=== PATIENT | female | born 1970 | race Two or more races ===

== ENCOUNTER 2023-05-30 15:53 | Outpatient (REF) | payer MEDICAID, SELFPAY ==
[2023-05-30 17:43] LABS: MANUAL DIFF FLAG NO
[2023-05-30 18:05] LABS: Anion Gap 13 (12-20); Blood Urea Nitrogen 7 mg/dL (9-16); Carbon Dioxide 27 mmol/L (22-29); Chloride 107 mmol/L (96-108); Estimated Glomerular Filt Rate > 60; Glucose Random 87 mg/dL (60-115); Potassium 4.5 mmol/L (3.3-5.1); Sodium 142 mmol/L (135-145)
[2023-05-30 18:22] LABS: TSH reflex Free T4 1.31 uIU/mL (0.32-4.0); Vitamin D 25-OH Total 49.8 ng/mL (>30)
[2023-05-30 18:28] LABS: Basophils Percent Auto 0.4 % (0-2); Eosinophils Absolute Auto 0.3 X10*3/uL (0.0-0.4); Eosinophils Percent Auto 3.6 % (0-4); Hematocrit 40.8 % (37.0-47.0); Hemoglobin 14.8 g/dl (12.0-16.0); Imm Gran Abs Auto 0.03 X10*3/uL (0.00-0.03); Imm Gran Pct Auto 0.3 % (0.0-0.4); Lymphocytes Absolute Auto 2.7 X10*3/uL (1.2-4.9); Mean Corpuscular HGB Conc 36.3 g/dl (31.0-35.0); Mean Corpuscular Hemoglobin 30.3 pg (27.0-33.0); Mean Corpuscular Volume 83.6 fL (80.0-98.0); Mean Platelet Volume 11.6 fL (9.4-12.3); Monocytes Absolute Auto 0.5 X10*3/uL (0.1-1.2); Monocytes Percent Auto 5.4 % (2-11); Neutrophils Absolute Auto 5.4 x10*3/uL (2.0-8.3); Neutrophils Percent Auto 60.3 % (45-73); Platelet Count 347 X10*3/uL (160-400); Red Blood Count 4.88 X10*6/uL (4.20-5.50); Red Cell Distribution Width 13.8 % (11.0-16.0)
== END 2023-05-30 15:54 | disposition home or self-care (01) ==
LOC: HO.HHCL 15:53
PROVIDERS: Visit Provider Internal Medicine
DX: F41.9 Anxiety disorder, unspecified (principal); R00.2 Palpitations; R53.83 Other fatigue
CPT/HCPCS: 36415; 80048; 82306; 83735; 84443; 85025

== ENCOUNTER → 2023-07-01 10:58 | Outpatient (REF) | payer MEDICAID, SELFPAY ==
--- NOTE | 2023-07-01 | HM_ITS ---
* Total monitoring time 2 days. * Underlying rhythm is sinus with an average rate of 70/Min. Range 50 to 154/Min. * Rare ventricular ectopy. * No significant pauses or AV blocks. * No patient markers or diary events. MTDD
--- NOTE | 2023-07-01 11:01 | CA_ITS ---
Transthoracic Echocardiogram Patient (Last, First, Middle): Sara Lyle, Gender: Female Date of : 1970 Age: 52 Procedure Date: 07/01/2023 Procedure Type: Transthoracic Echocardiogram Location: OP Height: 162. cm Weight: 65.77 kg BSA: 1.70 m2 Heart Rate: bpm BP: 115 / 80 mmHg Corporate Representative: ANUP Referring MD: Kevin Trejo MD Symptoms: PALPITATIONS Study Quality: Adequate Conclusions: - Normal left ventricular size and systolic function. There is mildly increased left ventricular wall thickness. The visually estimated ejection fraction is between 65-70%. There is no evidence of regional wall motion abnormalities. Diastolic function is normal for age. - Normal right ventricular cavity size and systolic function. Findings Left Ventricle Normal left ventricular size and systolic function. There is mildly increased left ventricular wall thickness. The visually estimated ejection fraction is between 65-70%. There is no evidence of regional wall motion abnormalities. Diastolic function is normal for age. Right Ventricle Normal right ventricular cavity size and systolic function. Atria The left atrium is normal in size. The right atrium is normal in size. Aortic Valve The aortic valve was not well visualized. There is no aortic valve stenosis. There is no aortic valve regurgitation. Mitral Valve Normal mitral valve structure and function. There is no mitral valve regurgitation. There is no mitral valve stenosis. Pulmonic Valve The pulmonic valve is likely normal. Tricuspid Valve Normal tricuspid valve structure. There is trace tricuspid valve regurgitation. Normal right atrial pressure. There is no evidence of pulmonary hypertension. Great Vessels All visible segments of the aorta are normal in size. Venous The inferior vena cava is normal in size and collapses greater than 50% with inspiration. Pericardium/Pleural There is no evidence of pericardial effusion. Prior Study Comparison No prior study available for comparison. Measurements 2D Linear Measurements IVSd: 1.20 0.6-0.9/0.6-1.0 cm LVIDd: 3.36 3.9-5.3/4.2-5.9 cm LVIDd Index: 1.98 2.4-3.2/2.2-3.1 cm/m2 LVIDs: 1.70 2.0-3.6 cm LVPWd: 1.21 0.7-1.1 cm LA Diam: 2.20 2.7-3.8/3.0-4.0 cm LAIDs Index: 1.29 1.5-2.3 cm/m2 LV Mass: 160.33 67-162/88-224 g LV Mass Index: 94.31 43-95/49-115 g/m2 LVOT Diam: 1.80 3.0+(-)1.3 cm 2D Systolic Function EF 4C: 59.50 >55% EF 2C: 65.50 >55% EF BiP: 62.20 >55% Mitral Valve MV Pk E: 0.67 MV PK A: 0.75 MV Decel Time: 173.00 E/A: 0.90 E'Lateral: 12.00 E'Medial: 6.64 E/E' Med: 10.10 E/E' Lat: 5.60 PHT: 51.00 MVA PHT: 4.31 Decel Charlotte: 3.87 Aortic Valve AoV Pk Adam: 1.88 AoV Mn Adam: 1.33 AoV VTI: 0.38 AoV Pk Grad: 14.00 Aov Mn Grad: 8.00 FRANK Cont.VTI: 1.74 LVOT LVOT Pk Adam: 1.55 LVOT Mn Adam: 0.94 LVOT VTI: 0.26 LVOT Pk Grad: 10.00 LVOT Mn Grad: 4.00 LVOT Diam: 1.80 LVOT Area: 2.54 Diastolic Function MV Pk E: 0.67 MV Pk A: 0.75 E/A: 0.90 E'Medial: 6.64 E/E' Med: 10.10 E' Laterial: 12.00 E/E' Lat: 5.60 Right Ventricle TAPSE (mm): 21.50 TVS' Adam: 10.80 Tricuspid Valve TR Pk Adam: 2.05 TR Pk Grad: 17.00 RA Press: 3.00 RVSP: 20.00 Great Vessels Aorta Sinus of Valsalva: 2.90 2.0-3.5 cm Ao Asc: 2.80 2.1-3.4 cm Pulmonary Valve PV Pk Adam: 1.21 Peak PV Grad: 6.00 Updated in Other Vendor System with Status of Final Ace Fraire MD electronically signed on 07/02/2023 10:54:58 PM with status of Final
== END ==
LOC: HO.CARD 10:58
PROVIDERS: PCP Internal Medicine; Visit Provider Internal Medicine
DX: R00.2 Palpitations (principal)
CPT/HCPCS: 93225; 93306

== ENCOUNTER → 2023-07-01 11:01 | Outpatient (BNV) | payer MEDICAID, SELFPAY | PROVIDERS: PCP Internal Medicine; Visit Provider Internal Medicine Cardiovascular Disease | DX: R00.1 Bradycardia, unspecified (principal) | CPT/HCPCS: 93227; 93306 ==

== ENCOUNTER 2024-02-28 14:53 | Outpatient (AMB) | payer MEDICAID, SELFPAY ==
--- NOTE | 2024-02-28 14:53 | MHC.OFFVIS ---
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 Complaints include pain over lumps/lipoedema, swelling of lower extremities, and heaviness of the lower extremities. It has been affecting their daily activities including walking, standing, and physical activity. It is noted more so in bilateral legs. She states it has been going on since puberty but getting worse. She has been ruled out for DVT/PE in the past. She states that she finds the lumps/swelling/pain is worse when she has her menstrual cycle. Patient denies any previous venous surgery or injections. Patient denies any history of DVT/ PE. Patient denies any history of phlebitis. Trial of compression includes - exercise, eating well; compression stockings help They now present for vascular evaluation regarding their varicose veins. [facility] Social History (Updated 02/28/24 @ 15:06 by Fatoumata Sue CMA) Alcohol intake: current Alcohol intake frequency: holidays/special occasions only Patient Tobacco Use Status: Former Tobacco user Review of Systems Const Denies chills, Denies daytime sleepiness, Denies fatigue, Denies fever(s), Denies poor appetite, Denies snoring, Denies stops breathing during sleep, Denies weakness, Denies weight gain and Denies weight loss Eyes Denies loss of vision ENT Reports Normal hearing present, Denies dizziness and Denies hearing loss Card Denies chest pain, Denies irregular heart rhythm, Denies claudication, Denies leg edema, Denies lightheadedness, Denies palpitations, Denies dyspnea on exertion and Denies orthopnea Resp Denies cough, Denies excessive phlegm production, Denies dyspnea on exertion, Denies snoring and Denies wheezing GI Denies abdominal pain, Denies hematochezia, Denies change in bowel habits, Denies nausea and Denies vomiting Denies urinary frequency and Denies dysuria Musc Denies arthralgias, Denies muscle weakness, Denies numbness and Denies other Skin/Breast Denies nail changes and Denies rash Neuro Reports Normal hearing present, Denies Abnormal speech present, Denies dizziness, Denies loss of vision, Denies memory loss, Denies numbness, Denies Sensory deficit (Neuro) and Denies weakness Psych Denies depression and Denies memory loss Endo Denies fatigue and Denies palpitations Graham/Lymph Denies easy bruising Aller/Immun Denies wheezing Physical Exam Const General: healthy appearing and no acute distress Orientation/consciousness: patient oriented x3 HEENT Head: Yes normal to inspection Ears: hearing grossly normal bilaterally Mouth: Normal oral and palatal mucosa present Resp Effort & Inspection: normal respiratory effort and able to speak in complete sentences Auscultation: clear to auscultation bilaterally Cardio Jugular venous distension: no JVD Rate: regular rate Rhythm: regular rhythm Heart sounds: S1 normal heart sound present and S2 normal heart sound present Bruits: no abdominal aortic bruits, no carotid bruits, no femoral bruits and no renal bruits Peripheral pulses: Peripheral pulses 2+ throughout GI Inspection: Yes normal to inspection Palpation (GI): No Abdominal aortic bruit present Skin General skin exam: no rashes or lesions noted Wounds: no wounds Hair: normal Neuro General: patient oriented x3 Cranial nerves: Yes Normal hearing present Cognition (Neuro): normal cognition Speech: No Abnormal speech present Gait exam (Neuro): Normal gait present Motor exam (neuro): 5/5 motor strength present throughout Sensory Exam: No Sensory deficit (Neuro) Extrem Other: Bilateral lower extremities: trace peripheral edema noted. Bumpy areas noted on both side of the tibia and around the calf. General: Yes normal to inspection, Yes full ROM, Yes capillary refill normal and Yes normal gait Assessment & Plan Assessment & Plan (1) Varicose veins of both lower extremities with inflammation: Code(s): I83.11 - Varicose veins of right lower extremity with inflammation; I83.12 - Varicose veins of left lower extremity with inflammation Category: Medical Plan: Sara is presenting today for a referral from his PCP for ongoing bilateral leg swelling, pain, and lumps/bumps, that are getting worse. In short, the patient has evidence of venous insufficiency. I have discussed the pathophysiology with the patient. In addition I have provided informational material regarding venous disease to the patient. We have discussed conservative measures including compression, elevation, and exercise. I have also provided a handout regarding appropriate use of compression stockings and where to purchase good compression stockings as well. I have taken the liberty of ordering venous insufficiency testing with the patient. They will follow up with me after testing. The patient had an opportunity to ask questions regarding the treatment plan. All questions were answered. Imaging studies, laboratory studies and physical exam results were discussed and reviewed in detail. No major barriers to understanding were identified. The patient expressed understanding and agreement with the above treatment plan. The patient is aware they should contact our office by phone for worsening of the current condition or the appearance of new symptoms. Thank you for allowing me to participate in the vascular care of this patient. If you have any questions or concerns regarding the treatment for the above condition please do not hesitate to contact me. The office telephone contact is [phone]. This note is constructed using voice recognition software. While every effort has been made to ensure accuracy, clinical medical assistant errors may have been included. Thank you for allowing me to participate in the care of your patient. Yours sincerely, TAYO Page Orders: Orders US venous duplex LE BI 1 Week I83.11 - Varicose veins of right lower extremity with inflammation, I83.12 - Varicose veins of left lower extremity with inflammation Coding Level of Care Code New Pt Level 4 (62731) Diagnoses Varicose veins of both lower extremities with inflammation I83.11; I83.12
== END 2024-02-28 15:26 | disposition home or self-care (01) ==
PROVIDERS: PCP General Practice; Visit Provider Physician Assistant Surgical
DX: I83.11 Varicose veins of right lower extremity with inflammation (principal); I83.12 Varicose veins of left lower extremity with inflammation
CPT/HCPCS: 99204

== ENCOUNTER → 2024-02-28 14:53 | Outpatient (BNVA) | payer MEDICAID, SELFPAY | PROVIDERS: PCP General Practice; Visit Provider Physician Assistant Surgical | DX: I83.11 Varicose veins of right lower extremity with inflammation (principal); I83.12 Varicose veins of left lower extremity with inflammation | CPT/HCPCS: 99212 ==

== ENCOUNTER 2024-04-13 10:35 | Outpatient (REF) | payer MEDICAID, SELFPAY ==
--- NOTE | ~2024-04-13 | US_ITS ---
EXAMINATION: US LOWER EXTREMITY VENOUS (REFLUX EXAM), BILATERAL CLINICAL INFORMATION: Varices with inflammation, right lower extremity. COMPARISON: None. TECHNIQUE: Color flow triplex imaging and compression Doppler was performed to evaluate both the deep and the superficial systems bilaterally. To evaluate the superficial system, the examination was performed in the upright position. Color-flow Doppler ultrasound and compression ultrasound were utilized. In addition, maneuvers were utilized to demonstrate reflux. FINDINGS: 1. DEEP VENOUS ULTRASOUND OF THE RIGHT LOWER EXTREMITY: Common Femoral Vein: Compressible, normal respiratory variation and augmented flow. Femoral Vein: Compressible, normal color flow and augmentation. Popliteal Vein: Compressible, normal augmentation. Deep Reflux: There is no evidence of reflux in the deep system in either the common femoral vein, superficial femoral or the popliteal vein. There is no evidence of a Diane's cyst. 2. SUPERFICIAL ULTRASOUND WITH DOPPLER OF RIGHT LOWER EXTREMITY: GREAT SAPHENOUS VEIN: Saphenofemoral Junction: 0.6 cm; Reflux: 0 ms Proximal Thigh: 0.2 cm; Reflux: 0 ms Mid Thigh: 0.3 cm; Reflux: 0 ms Distal Thigh: 0.2 cm; Reflux: 0 ms At Knee: 0.3 cm; Reflux: 0 ms Proximal Calf: 0.1 cm; Reflux: 0 ms Mid Calf: 0.1 cm; Reflux: 0 ms Distal Calf: 0.1 cm; Reflux: 0 ms DUPLICATED MEDIAL GREAT SAPHENOUS VEIN: Diameter: None imaged Reflux: NA DUPLICATED LATERAL GREAT SAPHENOUS VEIN: Diameter: 0.3 Reflux: NA SMALL SAPHENOUS VEIN: Saphenopopliteal Junction: 0.2 cm; Reflux: 0 ms Proximal: 0.1 cm; Reflux: 0 ms Distal: 0.1 cm; Reflux: 0 ms VEIN OF GIACOMINI: Size: 0.1 Reflux: NA PERFORATORS: Location: None imaged Size: NA Reflux: NA VARICOSITIES: Location: None imaged. Size: NA Reflux: NA 3. DEEP VENOUS ULTRASOUND OF THE LEFT LOWER EXTREMITY: Common Femoral Vein: Compressible, normal respiratory variation and augmented flow. Femoral Vein: Compressible, normal color flow and augmentation. Popliteal Vein: Compressible, normal augmentation. Deep Reflux: There is no evidence of reflux in the deep system in either the common femoral vein, superficial femoral or the popliteal vein. There is no evidence of a Diane's cyst. 4. SUPERFICIAL ULTRASOUND WITH DOPPLER OF LEFT LOWER EXTREMITY: GREAT SAPHENOUS VEIN: Saphenofemoral Junction: 0.7 cm; Reflux: 0 ms Proximal Thigh: 0.3 cm; Reflux: 0 ms Mid Thigh: 0.2 cm; Reflux: 0 ms Distal Thigh: 0.2 cm; Reflux: 0 ms At Knee: 0.2 cm; Reflux: 0 ms Proximal Calf: 0.1 cm; Reflux: 0 ms Mid Calf: 0.1 cm; Reflux: 0 ms Distal Calf: 0.1 cm; Reflux: 0 ms DUPLICATED MEDIAL GREAT SAPHENOUS VEIN: Diameter: None imaged Reflux: NA DUPLICATED LATERAL GREAT SAPHENOUS VEIN: Diameter: 0.2 Reflux: NA SMALL SAPHENOUS VEIN: Saphenopopliteal Junction: 0.2 cm; Reflux: 0 ms Proximal: 0.2 cm; Reflux: 0 ms Distal: 0.1 cm; Reflux: 0 ms VEIN OF GIACOMINI: Size: 0.2 Reflux: NA PERFORATORS: Location: None imaged Size: NA Reflux: NA VARICOSITIES: Location: None Imaged Size: NA Reflux: NA US/US venous insuf bilat IMPRESSION: Right: No venous insufficiency. Left: No venous insufficiency. Electronically signed by: Jean Carlos Wiggins MD 04/16/2024 08:20 AM [facility]
--- OUTSIDE RECORDS SUMMARY | 2024-04-13 12:01 | XMS_ITS | Encounter Summary ---
Author Organization [employer] Address [address] [facility] [address] [address] 7[address] [place] [address] Care Team Providers Care Internet Programmer Name Role Phone Kadi Carvajal MD Primary Care Provider [phone] Reason for Visit * Reason Onset Date Comments Med Refill 08/20/2023 Encounter Details Date Type Department Care Team (Late st Contact Info) Description 08/20/2023 Refill [facility] [address] [place] [address] Selam Pickard MD [address] [place] [address] Mild persistent asthma without complication Social History Tobacco Use Types Packs/Day Years Used Date Smoking Tobacco: Some Days Cigarettes Smokeless Tobacco: Never Alcohol Use Standard Drinks/Week Comments Yes 0 (1 standard drink = 0.6 oz pur e alcohol) Beer and Wine Depression Answer Date Recorded Patient Health Questionnaire-9 Score 23 06/03/2023 Patient Health Questionnaire-9 Score 23 06/03/2023 Last PHQ-9: Questionnaire Data Not on file 0 06/03/2023 Housing Stability Answer Date Recorded What is your housing situation today? I have sarah mcrae 06/03/[address] you li ve. Do you have problems with any of the following? None of the above 06/03/2023 Food Insecurity Answer Date Recorded Within the past 12 months, y ou worried that your food would run out before you got money to buy more: Never True 06/03/2023 Within the past 12 months,th e food you bought just didn't last and you didn't have enough money to get more: Never True Transportation Answer Date Recorded In the past 12 months, has l ack of transportation kept you from medical appts, meetings, work or from getting things needed for daily living? Yes, it has kept me from medical appointments or getting medications. 06/03/2023 Utilities Answer Date Recorded In the past 12 months, has t he electric, gas, oil or water company threatened to shut off services in your home? No 06/03/2023 Depression Answer Date Recorded Patient Health Questionnaire-2 Score 6 06/03/2023 Comments No Sex and Gender Information Value Date Recorded Sex Assigned at Female 05/25/2022 12:29 PM EST Legal Sex Female 8:38 PM EDT Gender Identity Female 05/25/2022 12:29 PM EST Sexual Orientation Lesbian or Park 06/03/2023 11 :42 AM EDT Occupation Industry Job Start Date Job End Date [employer] Not on file Not on file Not on file documented as of this encounter Plan of Treatment Upcoming Encounters Date Type Department Care Team (Late st Contact Info) Description 04/25/2024 3:00 PM EST Office Visit [facility] MEDICINE [address] [place] [address] Kadi Carvajal MD [address] [place] [address] 05/03/2024 1:30 PM EST Clinical Support [address] [address] Leslie Stapleton, RN documented as of this encounter Visit Diagnoses Diagnosis Mild persistent asthma without complication documented in this encounter Additional Health Concerns Assessment Noted Time PHQ-9 Depression Total Score: 23 024 9:07 AM EDT documented as of this encounter Care Teams Internet Programmer Relationship Specialty Start Date End Date Kadi Carvajal MD [address] [place] [address] PCP - General Family Medicine 06/03/23 documented as of this encounter
--- OUTSIDE RECORDS SUMMARY | 2024-04-13 12:01 | XMS_ITS | Encounter Summary ---
Author Organization [employer] Address [address] 7[address] [place] [address] Care Team Providers Care Head Of Marketing Analytics Name Role Phone Kadi Carvajal MD Primary Care Provider [phone] Encounter Details Date Type Department Care Team ([facility] st Contact Info) Description 08/16/[address] 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 MEDICINE [address] [place] [address] Kadi Carvajal MD [address] [place] [address] 05/03/2024 1:30 PM EST Clinical Support [address] [address] Leslie Stapleton, RN documented as of this encounter Visit Diagnoses Not on filedocumented in this encounter Additional Health Concerns Assessment Noted Time PHQ-9 Depression Total Score: 23 024 9:07 AM EDT documented as of this encounter Care Teams Head Of Marketing Analytics Relationship Specialty Start Date End Date Kadi Carvajal MD [address] [place] [phone] PCP - General Family Medicine 06/03/23 documented as of this encounter
--- OUTSIDE RECORDS SUMMARY | 2024-04-13 12:01 | XMS_ITS | Encounter Summary ---
Author Organization [employer] Address [address] 7[address] [place] [address] Care Team Providers Care Shiatsu Therapist Name Role Phone Kadi Carvajal MD Primary Care Provider [phone] Reason for Visit * Reason Onset Date Comments Med Refill 06/01/2023 Encounter Details Date Type Department Care Team (Late st Contact Info) Description 06/01/2023 Refill [facility] [address] [place] [address] Selam Pickard MD [address] [place] [address] Anxiety Social History Tobacco Use Types Packs/Day Years [...] Patient Health Questionnaire-2 Score 6 06/03/2023 Comments Unknown Sex and Gender Information Value Date Recorded Sex Assigned at Female 05/25/2022 12:29 PM EST Legal Sex Female 8:38 PM EDT Gender Identity Female 05/25/2022 12:29 PM EST Sexual Orientation Lesbian or Park 06/03/2023 11 :42 AM EDT 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 Not on file Not on file documented as of this encounter Plan of Treatment Upcoming Encounters Date Type Department Care Team (Late st Contact Info) Description 04/25/2024 3:00 PM EST Office Visit [address] [address] Kadi Carvajal MD [address] [place] [address] 05/03/2024 1:30 PM EST Clinical Support [address] [address] Leslie Stapleton, JUAN documented as of this encounter Visit Diagnoses Diagnosis Anxiety Anxiety state, unspecified documented in this encounter Care Teams Shiatsu Therapist Relationship Specialty Start Date End Date Kadi Carvajal MD [address] [place] [phone] PCP - General Family Medicine 06/03/23 documented as of this encounter
--- OUTSIDE RECORDS SUMMARY | 2024-04-13 12:01 | XMS_ITS | Encounter Summary ---
Author Organization [employer] Address [address] [facility] 7[address] [place] [address] Care Team Providers Care Shoulder Sawyer Name Role Phone Kadi Carvajal MD Primary Care Provider [phone] Reason for Visit * Reason Onset Date Comments Med Refill 11/09/2023 Encounter Details Date Type Department Care Team ([facility] st Contact Info) Description 11/09/2023 Refill [facility] MED[facility] [address] [place], [place] [phone] Kadi Carvajal MD [address] [place], [place] [phone] Anxiety Social History Tobacco Use Types Packs/Day [...] 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 Not on file Not on file documented as of this encounter Plan of Treatment Upcoming Encounters Date Type Department Care Team (Late st Contact Info) Description 04/25/2024 3:00 PM EST Office Visit [address] [address] Kadi Carvajal MD [address] [place] [address] 05/03/2024 1:30 PM EST Clinical Support [address] [address] Leslie Stapleton RN documented as of this encounter Visit Diagnoses Diagnosis Anxiety Anxiety state, unspecified documented in this encounter Additional Health Concerns Assessment Noted Time PHQ-9 Depression Total Score: 23 024 9:07 AM EDT documented as of this encounter Care Teams Shoulder Sawyer Relationship Specialty Start Date End Date Kadi Carvajal MD [address] [place] [phone] PCP - General Family Medicine 06/03/23 documented as of this encounter
--- OUTSIDE RECORDS SUMMARY | 2024-04-13 12:01 | XMS_ITS | Encounter Summary ---
Author Organization [employer] Address [address] [facility] 7t [place] [address] Care Team Providers Care Neurology Teacher Name Role Phone Kadi Carvajal MD Primary Care Provider [phone] Reason for Visit * Reason Onset Date Comments Med Refill 06/01/2023 Encounter Details Date Type Department Care Team (Late st Contact Info) Description 06/01/2023 Refill [facility] MEDICAL [address] [place] [address] [facility] [address] [place] [address] Attention deficit disorder (ADD) without hyperactivity Social History Tobacco Use Types Packs/Day Years [...] 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 * Telephone Encounter - Emma Mills - 06/02/2023 11:51 AM EDT Clonazepam 0.5 Mg Tablet Masspat Last fill Date:01/07/23 Last OV: 04/19/23 Next OV: NA Last UTOX: 12/03/22 CSA Date:NA DNF Date:02/04/23 documented in this encounter Plan of Treatment Upcoming Encounters Date Type Department Care Team (Late st Contact Info) Description 04/25/2024 3:00 PM EST Office Visit [address] [address] Kadi Carvajal MD [address] [place] [address] 05/03/2024 1:30 PM EST Clinical Support [address] [address] Leslie Stapleton RN documented as of this encounter Visit Diagnoses Diagnosis Attention deficit disorder (ADD) without hyperactivity documented in this encounter Care Teams Neurology Teacher Relationship Specialty Start Date End Date Kadi Carvajal MD [address] [place] [address] PCP - General Family Medicine 06/03/23 documented as of this encounter
--- OUTSIDE RECORDS SUMMARY | 2024-04-13 12:01 | XMS_ITS | Encounter Summary ---
Author Organization [employer] Address [address] [facility] [address] [place] [address] Care Team Providers Care Trench Digging Machine Operator Name Role Phone Kadi Carvajal MD Primary Care Provider [phone] Reason for Visit * Reason Onset Date Comments Med Refill 09/02/2023 Encounter Details Date Type Department Care Team ([facility] st Contact Info) Description 09/02/2023 Refill [facility] [address] [place] [address] Selam Pickard MD [address] [place] [address] Mild persistent asthma without complication Social History [...] 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 Not on file Not on file documented as of this encounter Plan of Treatment Upcoming Encounters Date Type Department Care Team (Late st Contact Info) Description 04/25/2024 3:00 PM EST Office Visit [facility] MEDICINE [address] [place] [address] Kadi Carvajal MD [address] [place] [address] 05/03/2024 1:30 PM EST Clinical Support [address] [address] Leslie Stapleton, RN documented as of this encounter Visit Diagnoses Diagnosis Mild persistent asthma without complication documented in this encounter Additional Health Concerns Assessment Noted Time PHQ-9 Depression Total Score: 23 024 9:07 AM EDT documented as of this encounter Care Teams Trench Digging Machine Operator Relationship Specialty Start Date End Date Kadi Carvajal MD [address] [place] [phone] PCP - General Family Medicine 06/03/23 documented as of this encounter
--- OUTSIDE RECORDS SUMMARY | 2024-04-13 12:01 | XMS_ITS | Encounter Summary ---
Author Organization [employer] Address [address] [facility] 7t [place] [address] Care Team Providers Care Analog Ic Design Engineer Name Role Phone Kadi Carvajal MD Primary Care Provider [phone] Reason for Visit * Reason Onset Date Comments Med Refill 12/19/2023 Encounter Details Date Type Department Care Team ([facility] st Contact Info) Description 12/19/2023 Refill [facility] MEDICINE [address] [place], [place] [phone] Kadi Carvajal MD [address] [place], [place] [phone] Attention deficit disorder (ADD) without hyperactivity Social [...] 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 Not on file Not on file documented as of this encounter Plan of Treatment Upcoming Encounters Date Type Department Care Team (Late st Contact Info) Description 04/25/2024 3:00 PM EST Office Visit [address] [address] Kadi Carvajal MD [address] [place] [address] 05/03/2024 1:30 PM EST Clinical Support [address] [address] Leslie Stapleton, RN documented as of this encounter Visit Diagnoses Diagnosis Attention deficit disorder (ADD) without hyperactivity documented in this encounter Additional Health Concerns Assessment Noted Time PHQ-9 Depression Total Score: 23 024 9:07 AM EDT documented as of this encounter Care Teams Analog Ic Design Engineer Relationship Specialty Start Date End Date Kadi Carvajal MD [address] [place] [address] PCP - General Family Medicine 06/03/23 documented as of this encounter
--- OUTSIDE RECORDS SUMMARY | 2024-04-13 12:01 | XMS_ITS | Encounter Summary ---
Author Organization [employer] Address 75 [facility] 7t [place] [address] Care Team Providers Care Chief Engineer Name Role Phone Kadi Carvajal MD Primary Care Provider [phone] Reason for Visit * Reason Onset Date Comments Med Refill 02/14/2024 Encounter Details Date Type Department Care Team ([facility] st Contact Info) Description 02/14/2024 Refill [facility] MEDICINE [address] [place], [place] [phone] Kadi Carvajal MD 230 [place], [place] [phone] Anxiety Social History Tobacco Use Types Packs/Day [...] 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 Not on file documented as of this encounter Plan of Treatment Upcoming Encounters Date Type Department Care Team (Late st Contact Info) Description 04/25/2024 3:00 PM EST Office Visit [address] [address] Kadi Carvajal MD [address] [place] [address] 05/03/2024 1:30 PM EST Clinical Support [address] [address] Leslie Stapleton RN documented as of this encounter Visit Diagnoses Diagnosis Anxiety Anxiety state, unspecified documented in this encounter Additional Health Concerns Assessment Noted Time PHQ-9 Depression Total Score: 23 024 9:07 AM EDT documented as of this encounter Care Teams Chief Engineer Relationship Specialty Start Date End Date Kadi Carvajal MD [address] [place] [address] PCP - General Family Medicine 06/03/23 documented as of this encounter
--- OUTSIDE RECORDS SUMMARY | 2024-04-13 12:01 | XMS_ITS | Encounter Summary ---
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 Not on file documented as of this encounter Miscellaneous Notes * Telephone Encounter - Emma Mills - 06/02/2023 11:57 AM EDT Clonazepam 0.5 Mg Tablet [facility] Last fill Date:01/07/23 Last OV:04/19/23 Next OV:NA Last UTOX:12/03/21 CSA Date:NA DNF Date:02/04/23 documented in this encounter Plan of Treatment Upcoming Encounters Date Type Department Care Team (Late st Contact Info) Description 04/25/2024 3:00 PM EST Office Visit [address] [address] Kadi Carvajal MD [address] [place] [address] 05/03/2024 1:30 PM EST Clinical Support [address] [address] Leslie Stapleton RN documented as of this encounter Visit Diagnoses Diagnosis Anxiety Anxiety state, unspecified documented in this encounter Care Teams Hemmer Chainstitch Relationship Specialty Start Date End Date Kadi Carvajal MD [address] [place] [address] PCP - General Family Medicine 06/03/23 documented as of this encounter
--- OUTSIDE RECORDS SUMMARY | 2024-04-13 12:01 | XMS_ITS | Encounter Summary ---
Author Organization [employer] Address 75 [facility] 7t [place] [address] Care Team Providers Care Disability Case Manager Name Role Phone Kadi Carvajal MD Primary Care Provider [phone] Reason for Visit * Reason Onset Date Comments Med Refill 11/07/2023 Encounter Details Date Type Department Care Team ([facility] st Contact Info) Description 11/07/2023 Refill [facility] MEDICINE 230 [place], [place] [phone] Kadi Carvajal MD 230 [place], [place] [phone] Anxiety Social History Tobacco Use Types Packs/Day [...] 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 Not on file documented as of this encounter Plan of Treatment Upcoming Encounters Date Type Department Care Team (Late st Contact Info) Description 04/25/2024 3:00 PM EST Office Visit [address] [address] Kadi Carvajal MD [address] [place] [address] 05/03/2024 1:30 PM EST Clinical Support [address] [address] Leslie Stapleton RN documented as of this encounter Visit Diagnoses Diagnosis Anxiety Anxiety state, unspecified documented in this encounter Additional Health Concerns Assessment Noted Time PHQ-9 Depression Total Score: 23 024 9:07 AM EDT documented as of this encounter Care Teams Disability Case Manager Relationship Specialty Start Date End Date Kadi Carvajal MD [address] [place] [address] PCP - General Family Medicine 06/03/23 documented as of this encounter
--- OUTSIDE RECORDS SUMMARY | 2024-04-13 12:01 | XMS_ITS | Encounter Summary ---
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 Not on file documented as of this encounter Plan of Treatment Upcoming Encounters Date Type Department Care Team (Late st Contact Info) Description 04/25/2024 3:00 PM EST Office Visit [address] [address] Kadi Carvajal MD [address] [place] [address] 05/03/2024 1:30 PM EST Clinical Support [address] [address] Leslie Stapleton RN documented as of this encounter Visit Diagnoses Diagnosis Attention deficit disorder (ADD) without hyperactivity documented in this encounter Care Teams Derrick Hand Relationship Specialty Start Date End Date Kadi Carvajal MD [address] [place] [address] PCP - General Family Medicine 06/03/23 documented as of this encounter
--- OUTSIDE RECORDS SUMMARY | 2024-04-13 12:01 | XMS_ITS | Encounter Summary ---
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 Not on file documented as of this encounter Plan of Treatment Upcoming Encounters Date Type Department Care Team (Late st Contact Info) Description 04/25/2024 3:00 PM EST Office Visit [address] [address] Kadi Carvajal MD [address] [place] [address] 05/03/2024 1:30 PM EST Clinical Support [address] [address] Leslie Stapleton, RN documented as of this encounter Visit Diagnoses Not on filedocumented in this encounter Additional Health Concerns Assessment Noted Time PHQ-9 Depression Total Score: 23 024 9:07 AM EDT documented as of this encounter Care Teams J[employer] Software Engineer Relationship Specialty Start Date End Date Kadi Carvajal MD [address] [place] [phone] PCP - General Family Medicine 06/03/23 documented as of this encounter
--- OUTSIDE RECORDS SUMMARY | 2024-04-13 12:01 | XMS_ITS | Encounter Summary ---
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 TC to patient, explained to patient above. Patient clarifying that she's trying to organize and straighten things out for her self. Encouraged her to call [facility] regarding her prescriptions as they havebeen at the pharmacy. Pt stated she is not getting alerted from [facility] when she has prescription readyand when she calls them they say they dont have it. Advised again, to call [facility], review her cell #, assure they have her setup for electronic alerts and be sure she's calling the correct pharmacy as she has [facility]. documented in this encounter Plan of Treatment Upcoming Encounters Date Type Department Care Team (Late st Contact Info) Description 04/25/2024 3:00 PM EST Office Visit [facility] MED[facility]INE [address] [place] [address] Kadi Carvajal MD [address] [place] [address] 05/03/2024 1:30 PM EST Clinical Support [facility] MEDICINE [address] [place] [address] Leslie Stapleton RN documented as of this encounter Visit Diagnoses Diagnosis Anxiety Anxiety state, unspecified documented in this encounter Additional Health Concerns Assessment Noted Time PHQ-9 Depression Total Score: 23 024 9:07 AM EDT documented as of this encounter Care Teams Opal Polisher Relationship Specialty Start Date End Date Kadi Carvajal MD [address] [place] [address] PCP - General Family Medicine 06/03/23 documented as of this encounter
--- OUTSIDE RECORDS SUMMARY | 2024-04-13 12:01 | XMS_ITS | Encounter Summary ---
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 Not on file documented as of this encounter Miscellaneous Notes * Telephone Encounter - Marti Jimenez - 08/17/2023 9:50 [address] EDT Good morning Dr Gray Can u send patient something for pain and infection she/her/hers be seeing Dr Laura arambula in September 04 for her extraction .until then she's in a lot of pain documented in this encounter Plan of Treatment Upcoming Encounters Date Type Department Care Team (Late st Contact Info) Description 04/25/2024 3:00 PM EST Office Visit [facility] MEDICINE [address] [place] [address] Kadi Carvajal MD [address] [place] [address] 05/03/2024 1:30 PM EST Clinical Support [facility] MEDICINE [address] [place] [address] Leslie Stapleton RN documented as of this encounter Visit Diagnoses Not on filedocumented in this encounter Additional Health Concerns Assessment Noted Time PHQ-9 Depression Total Score: 23 024 9:07 AM EDT documented as of this encounter Care Teams Automobile Service Station Mechanic Relationship Specialty Start Date End Date Kadi Carvajal MD [address] [place] [address] PCP - General Family Medicine 06/03/23 documented as of this encounter
--- OUTSIDE RECORDS SUMMARY | 2024-04-13 12:01 | XMS_ITS | Encounter Summary ---
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 Not on file documented as of this encounter Miscellaneous Notes * Telephone Encounter - Jovi Gray DMD - 11/09/2023 8:01 AM EDT I have already ordered the mouthwash 5 days ago documented in this encounter Plan of Treatment Upcoming Encounters Date Type Department Care Team (Late st Contact Info) Description 04/25/2024 3:00 PM EST Office Visit [address] [address] Kadi Carvajal MD [address] [place] [address] 05/03/2024 1:30 PM EST Clinical Support [address] [address] Leslie Stapleton, RN documented as of this encounter Visit Diagnoses Not on filedocumented in this encounter Additional Health Concerns Assessment Noted Time PHQ-9 Depression Total Score: 23 024 9:07 AM EDT documented as of this encounter Care Teams Urology Physician Relationship Specialty Start Date End Date Kadi Carvajal MD [address] [place] [address] PCP - General Family Medicine 06/03/23 documented as of this encounter
--- OUTSIDE RECORDS SUMMARY | 2024-04-13 12:01 | XMS_ITS | Clinical Summary ---
Author Organization [employer] Address [address] [facility] 7[address] [place] [address] Care Team Providers Care Residential Collections Name Role Phone Kadi Carvajal MD Primary Care Provider [phone] Allergies Active Allergy Reactions Criticality Noted Date Comments Sulfa Antibiotics 03/03/2022 Other reaction(s): Hives Medications * This document contains information received from the source organization and may not represent a complete record from that organization. fluticasone (Flovent HFA) 110 MCG/ACT inhalerIndicatio ns:Mild intermittent asthma, uncomplicated,Mi ld persistent asthma without complication INHALE 1 PUFF INTO THE LUNGS TWICE A DAY 12 g 2 023 Active albuterol (ProAir HFA) 108 (90 Base) MCG/ACT inhalerIndicatio ns:Mild persistent asthma without complication Inhale 2 puffs every 4 (four) hours if needed for wheezing or shortness of breath. 8.5 g 3 024 2024 Active norelgestromin-e thinyl estradiol (Xulane) 150-35 MCG/24HRIndicati ons:Menopausal symptoms Apply 1 patch each week for 3 weeks, then remove for 1 week. 3 patch 12 024 2024 Active naloxone (Narcan) 4 mg/0.1 mL nasal sprayIndications :Anxiety Administer 1 spray (4 mg) into affected nostril(s) if needed for opioid reversal. May repeat every 2-3 minutes if needed, alternating nostrils, until medical assistance becomes available. 2 each 3 024 2024 Active Additional Information Patient not taking.Reported on 12/19/2023 semaglutide (Ozempic) 2 MG/1.5ML solution pen-injector Inject 50 mg under the skin 1 (one) time per week. Last dose 09/2023 Active chlorhexidine (Peridex) 0.12 % solution Swish 15 mL morning and night for 1 minute. Spit, do not swallow. Do not eat or drink for 30 minutes following use. 473 mL Active Additional Information Patient not taking.Reported on 12/19/2023 amphetamine-dext roamphetamine XR (Adderall XR) 10 MG 24 hr capsuleIndicatio ns:Attention deficit disorder (ADD) without hyperactivity Take 1 capsule (10 mg) by mouth Once per day. Take along with Adderall XR 30mg tablet (to equal 40mg dose). Do not crush or chew. 84 capsule Active FLUoxetine (PROzac) 20 MG capsuleIndicatio ns:Anxiety Take 1 capsule (20 mg) by mouth Once per day. 90 capsule 3 024 2024 Active albuterol (Ventolin HFA) 108 (90 Base) MCG/ACT inhaler Inhale 2 puffs every 6 (six) hours if needed for wheezing. INHALE 2 PUFFS EVERY 6 HOURS IF NEEDED FOR WHEEZING. 18 g 3 Active fluticasone (Flonase) 50 MCG/ACT nasal sprayIndications :Seasonal allergic rhinitis, unspecified trigger USE 1 SPRAY IN EACH NOSTRIL EVERY DAY 32 mL 11 Active amphetamine-dext roamphetamine XR (Adderall XR) 30 MG 24 hr capsuleIndicatio ns:Attention deficit disorder (ADD) without hyperactivity TAKE 1 CAPSULE BY MOUTH EVERY MORNING. TAKE ALONG WITH ADDERALL XR 10MG TABLET (TO EQUAL 40MG DOSE) 60 capsule Active clonazePAM (KlonoPIN) 0.5 MG tabletIndication s:Anxiety Take 1 tablet (0.5 mg) by mouth every 12 (twelve) hours if needed for anxiety for up to 28 days. 56 tablet 025 2024 Active fluticasone (Flonase) 50 MCG/ACT nasal sprayIndications :Seasonal allergic rhinitis, unspecified trigger USE 1 SPRAY INTO EACH NOSTRIL EVERY DAY 48 mL 1 024 2023 Discontinued amphetamine-dext roamphetamine XR (Adderall XR) 30 MG 24 hr capsuleIndicatio ns:Attention deficit disorder (ADD) without hyperactivity Take 1 capsule (30 mg) by mouth in the morning. Take along with Adderall XR 10mg tablet (to equal 40mg dose). 84 capsule 024 2024 Discontinued(R eorder (will not trigger notification to Pharmacy)) clonazePAM (KlonoPIN) 0.5 MG tabletIndication s:Anxiety Take 1 tablet (0.5 mg) by mouth every 12 (twelve) hours if needed for anxiety for up to 7 days. 14 tablet 024 2024 Discontinued(R eorder (will not trigger notification to Pharmacy)) clonazePAM (KlonoPIN) 0.5 MG tabletIndication s:Anxiety Take 1 tablet (0.5 mg) by mouth every 12 (twelve) hours if needed for anxiety for up to 7 days. 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 agreement: signed 08/2023 Tier III (visit every 4-6 months) Additional considerations: Timeline: Assessment & Plan (02/12/2024 1:36 PM EST): Reviewed being seen every 4-6 months for utox and pill counts, importance of taking her meds as prescribed, and her being treated by her own prescriber History of tooth extraction 10/28/2023 Severe dental caries 10/24/2023 Non-restorable tooth 10/24/2023 Encounter to establish care with new doctor 05/19 Assessment & Plan (06/05/2023 6:42 PM EDT): Discussed psych history, plan to restart medications and monitor in six weeks Therapy services have been re-started Labs done by [facility] provider, all normal Discussed some preventative care, will continue to address at subsequent visits Episode of recurrent major depressive disorder 0 05/30/2023 Eating disorder 05/28/2022 Adnexal mass 02/22/2022 Generalized anxiety disorder 02/22/2022 Attention deficit disorder (ADD) without hyperac tivity 02/22/2022 Environmental and seasonal allergies 02/22/2022 Metrorrhagia 02/22/2022 Mild persistent asthma without complication 07/2021 Moderate episode of recurrent major depressive d isorder 02/22/2022 Seasonal allergic rhinitis 02/22/2022 Resolved Problems Problem Noted Date Diagnosed Date Resolved Date Lipid metabolism abnormality 02/22/2022 05/28/2022 Urinary incontinence 02/22/2022 024 Encounters Date Type Department Care Team Description 04/03/2024 Refill [facility] [address] [place] [address] Kadi Carvajal MD Anxiety 03/23/2024 Refill [facility] [address] [place] [address] Kadi Carvajal MD 03/23/2024 Refill [facility] [address] [place] [address] Selam Pickard MD Mild persistent asthma without complication 03/23/2024 Refill [facility] [address] [place] [address] Sherry Brady DO Anxiety 03/23/2024 Refill [facility] [address] [place] [address] Kadi Carvajal MD Attention deficit disorder (ADD) without hyperactivity 03/17/2024 Refill [facility] [address] [place] [address] Selam Pickard MD Seasonal allergic rhinitis, unspecified trigger 03/06/2024 Refill [facility] [address] [place] [address] Kadi Carvajal MD Anxiety 02/14/2024 Refill [facility] [address] [place] [address] Kadi Carvajal MD Anxiety 02/14/2024 Refill [facility] [address] [place] [address] Kadi Carvajal MD Anxiety 02/08/2024 2:00 PM EST Office Visit [facility] [address] [place] [phone] Kadi Carvajal MD Anxiety (Primary Dx); Encounter for screening mammogram for malignant neoplasm of breast; Screening for colon cancer; Lipoedema; Attention deficit disorder (ADD) without hyperactivity; Generalized anxiety disorder; 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 prescription 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 02/08/2024 1:00 PM EST Office Visit [facility] [address] [place] [phone] Jovi Gray DMD 02/08/2024 Travel 02/07/2024 Refill [facility] [address] [place] [phone] Leslie Stapleton RN Anxiety 01/12/2024 Refill [facility] [address] [place] [phone] Kadi Carvajal MD from Last 3 Months Immunizations Name Administration Dates Next Due Influenza, IIV3, injectable 02/06/2020, 9 Pfizer Covid-19 Vaccine 12+ 03/12/2021,,07/11/2020 Tdap 03/30/2018 Family History Medical History Relation Name Comments Alcohol abuse Father Hypertension Father Stroke Father Glaucoma Father's Brother Bone cancer Maternal Grandmother Hypertension Mother Cataracts Paternal Grandfather Stroke Paternal Grandmother Relation Name Status Comments Father Father's Brother Maternal Grandmother Mother Alive Paternal Grandfather Paternal Grandmother Social History Tobacco Use Types Packs/Day Years Used Date Smoking Tobacco: Some Days Cigarettes Smokeless Tobacco: Never Tobacco Cessation:Ready to Q uit: Not Asked; Counseling Given: Not Answered Alcohol Use Standard Drinks/Week Comments Yes 0 (1 standard drink = 0.6 oz pur e alcohol) Beer and Wine Depression Answer Date Recorded Patient Health Questionnaire-9 Score 06/03/2023 Patient Health Questionnaire-9 Score 06/03/2023 Last PHQ-9: Questionnaire Data Not on file 0 06/03/2023 Housing Stability Answer Date Recorded What is your housing situation today? 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 on file Not on file Last Filed Vital Signs Vital Sign Reading Time Taken Comments Blood Pressure 137/94 02/08/2024 2:34 PM EST Pulse 90 02/08/2024 2:34 PM EST Temperature 36.7 ??C (98.1 ??F) 02/08/2024 2:34 PM ES T Respiratory Rate 18 02/08/2024 2:34 PM EST Oxygen Saturation 100% 02/08/2024 2:34 PM EST Inhaled Oxygen Concentration - - Weight 58.4 kg (128 lb 12.8 oz) 02/08/2024 2:34 PM EST Height 164 cm (5' 4.57 ) 02/08/2024 2:34 PM EST Body Mass Index 21.72 02/08/2024 2:34 PM EST Plan of Treatment Upcoming Encounters Date Type Department Care Team (Late st Contact Info) Description 04/25/2024 3:00 PM EST Office Visit [address] [address] Kadi Carvajal MD [address] [place] [address] 05/03/2024 1:30 PM EST Clinical Support [address] [address] Leslie Stapleton, RN Health Maintenance Due Date Last Done Comments CT Colonography 1972 Colonoscopy 1972 FIT 1972 FOBT 1972 HIV Screening 1972 Sigmoidoscopy 1972 Pneumococcal Vaccine: Pediatrics (0 to 5 Years) and At-Risk Patients (6 to 64 Years) (1 of 2 - PCV) 1978 Family Planning (PISQ) 10/06/1987 Hepatitis C Screening 1990 Hepatitis B Vaccines (1 of 3 - 19+ 3-dose series) 10/06/1991 Mammogram 2012 Zoster Vaccines (1 of 2) 2022 Cervical Cancer Screening 11/24/2022 HPV/Cotest 11/24/2022 Pap Smear 11/24/2022 11/24/2017 COVID-19 Vaccine ( season) 2023 03/12/2021, 08/02/2020, 07/11/2020 Influenza Vaccine (#1) 2023 02/06/2020, 2018 Depression Monitoring (PHQ-9) 12/04/2023 06/03/2023, 06/03/2023 Lipid Panel 05/30/2024 05/31/2019 Alcohol/Substance Use Screening 06/02/2024 06/03/2023 Depression Screening 06/02/2024 06/03/2023, 06/03/19 24 SDOH Screening 06/02/2024 06/03/2023 Dental Oral Exam 06/18/2024 12/19/2023, , 03/23/2018 Dental Prophylaxis 06/18/2024 12/19/2023, 0 06/04/2020, 03/30/2018 Dental X-Ray: Bitewings 12/19/2024 12/19/19 24, 09/27/2023, 07/21/2023, Additional history exists Tobacco Screening 02/11/2025 02/12/2024 Dental X-Ray: Full Mouth 12/19/2026 12/19/2023, 05/2018 Colorectal Cancer Screening 03/05/2027 FIT DNA/Cologuard 03/05/2027 03/05/2024 DTaP/Tdap/Td Vaccines (2 - Td or Tdap) 03/30/2028 03/30/2018 RSV Patients and Patients Aged 60 years or older (1 - 1-dose 75+ series) 10/06/2047 HIB Vaccines Aged Out No longer eligi ble based on patient's age to complete this topic HPV Vaccines Aged Out No longer eligi ble based on patient's age to complete this topic Hepatitis A Vaccines Aged Out No long er eligible based on patient's age to complete this topic IPV Vaccines Aged Out No longer eligi ble based on patient's age to complete this topic Meningococcal Vaccine Aged Out No denisse balbina eligible based on patient's age to complete this topic RSV under 20 months Aged Out No longe r eligible based on patient's age to complete this topic Rotavirus Vaccines Aged Out No longer eligible based on patient's age to complete this topic Procedures Procedure Name Priority Date/Time Associated Diagnosis Comments LAB COLOGUARD?? COLON CANCER SCREEN Routine 03/05/2024 12:30 PM EST Screening for colon cancer POCT CHELY-14 URINE DRUG SCREEN Routine 02/08/2024 3:16 PM EST Anxiety ADJUNCTIVE GENERAL SERVICES - PROFESSIONAL VISITS - CASE PRESENTATION, SUBSEQUENT TO DETAILED AND EXTENSIVE TREATMENT PLANNING Routine 02/08/2024 1:00 PM EST 12 MO RESTORATIVE - RESIN-BASED COMPOSITE RESTORATIONS - DIRECT - RESIN-BASED COMPOSITE - TWO SURFACES, POSTERIOR Routine 02/08/2024 1:00 PM EST PROPHYLAXIS - ADULT Routine 12/19/2023 9 :00 AM EDT Dental plaque Dental calculus DIAGNOSTIC - DIAGNOSTIC IMAGING - INTRAORAL - COMPREHENSIVE SERIES OF RADIOGRAPHIC IMAGES Routine 12/19/2023 9:00 AM EDT PERIODIC ORAL EVALUATION - ESTABLISHED PATIENT Routine 12/19/2023 9:00 AM EDT LIPID PANEL, STANDARD Routine 05/31/2019 1:27 PM EDT PAP SMEAR Routine 11/24/2017 12:00 AM EDT from Last 3 Months or Most Recently Relevant to Health Maintenance Results * Cologuard?? colon cancer screening (03/05/2024 12:30 PM EST) Cologuard Result Negative Negative 03/10/20 24 6:33 AM EST [facility] (IA #:[id number]) Comment: NEGATIVE TEST RESULT. A negative Cologuard result indicates a low likelihood that a colorectal cancer (CRC) or advanced adenoma (adenomatous polyps with more advanced pre-malignant features) ??is present. The chance that a person with a negative Cologuard test has a colorectal cancer is less than 1 in 1500 (negative predictive value >99.9%) or has an ??advanced adenoma is less than ??5.3% (negative predictive value 94.7%). These data are based on a prospective cross-sectional study of 10,000 individuals at average risk for colorectal cancer who were screened with both Cologuard and colonoscopy. (Josi Meredith al, N Engl J Med 2014;370(14):1286- 1297) The normal value (reference range) for this assay is negative. COLOGUARD RE-SCREENING RECOMMENDATION: Periodic colorectal cancer screening is an important part of preventive healthcare for asymptomatic individuals at average risk for colorectal cancer. ??Following a negative Cologuard result, the [employer] Society and U.S. Multi-Society Task Force screening guidelines recommend a Cologuard re-screening interval of 3 years. References: [employer] Guideline for Colorectal Cancer Screening: https://www.cancer.org/cancer/cwoww-xwvorw-obtvpj/wtvcbzynr-icnncetbs-yqqpnnm/ac s-rec ommendations.html.; Natanael DK, Kareem CR, Lyly ShahK, Colorectal Cancer Screening: Recommendations for Physicians and Patients from the U.S. Multi-Society Task Force on Colorectal Cancer Screening , Am J Gastroenterology 2017; 112:4673-7924. TEST DESCRIPTION: Composite algorithmic analysis of stool DNA-biomarkers with hemoglobin immunoassay. ?? Quantitative values of individual biomarkers are not reportable and are not associated with individual biomarker result reference ranges. Cologuard is intended for colorectal cancer screening of adults of either sex, 45 years or older, who are at average-risk for colorectal cancer (CRC). Cologuard has been approved for use by the U.S. FDA. The performance of Cologuard was established in a cross sectional study of average-risk adults aged 50-84. Cologuard performance in patients ages 45 to 49 years was estimated by sub-group analysis of near-age groups. Colonoscopies performed for a positive result may find as the most clinically significant lesion: colorectal cancer [4.0%], advanced adenoma (including sessile serrated polyps greater than or equal to 1cm diameter) [20%] or non- advanced adenoma [31%]; or no colorectal neoplasia [45%]. These estimates are derived from a prospective cross-sectional screening study of 10,000 individuals at average risk for colorectal cancer who were screened with both Cologuard and colonoscopy. (Josi Roman et al, N Engl J Med 2014;370(14):7781-7591.) Cologuard may produce a false negative or false positive result (no colorectal cancer or precancerous polyp present at colonoscopy follow up). A negative Cologuard test result does not guarantee the absence of CRC or advanced adenoma (pre-cancer). The current Cologuard screening interval is every 3 years. ([employer] Society and U.S. Multi-Society Task Force). Cologuard performance data in a 10,000 patient pivotal study using colonoscopy as the reference method can be accessed at the following location: www.[employer]/results. Additional description of the Cologuard test process, warnings and precautions can be found at www.[employer].com. Stool specimen (specimen) 03/05/2024 12:30 PM EST 03/06/2024 12:44 PM EST us Kadi Carvajal MD LAB MOLECULAR DIAGNOSTICS [facility] Final Result [facility] (CLIA #:[id number]) [address] [place] [address], * POCT CHELY-14 Urine Drug Screen (02/08/2024 3:16 PM EST) THC Positive Amphetamine Screen, Urine Positive Benzodiazepines Screen, Urine Positive Urine Urine specimen obtained by clean catch procedure / Unknown 02/08/2024 3:16 PM EST Leslie Meza RN - 02/08/2024 3:16 PM EST [employer] cup Lot#[id number] Exp. 11/07/25 Internal Pass Control Kadi Carvajal MD POINT OF CARE TEST ENTER/EDIT ORDERABLES Final Result * -Lipid Panel (05/31/2019 1:27 PM EDT) LDL CHOLESTEROL, CALCULATED 76 (0-130) MG/DL [facility] CHOLESTEROL, TOTAL 181 (<200) MG/DL [facility] HDL CHOL 99 (>39) MG/DL [facility] NON HDL CHOLESTEROL (CALC) 82 (<160) MG/DL [facility] TRIGLYCERIDE 29 (<150) MG/DL [facility] 05/31/2019 1:27 PM EDT Bonny Marrufo OUTSIDE PHYSICAL DAMAGE APPRAISER LAB BLOOD ORDERABLES Fi nal Result [facility] [address] * Pap Smear (11/24/2017 12:00 AM EDT) Swab Historical Provider LAB CYTOLOGY ORDERABLES F inal Result from Last 3 Months or Most Recently Relevant to Health Maintenance Insurance [facility] C[place]ENT[place] MEDICAID STAND ADULT [facility] ST[facility] ADULT Care Teams Residential Collections Relationship Specialty Start Date End Date Kadi Carvajal MD [address] [place] [phone] PCP - General Family Medicine 06/03/23
--- OUTSIDE RECORDS SUMMARY | 2024-04-13 12:01 | XMS_ITS | Encounter Summary ---
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 Not on file documented as of this encounter Plan of Treatment Upcoming Encounters Date Type Department Care Team (Late st Contact Info) Description 04/25/2024 3:00 PM EST Office Visit [address] [address] Kadi Carvajal MD [address] [place] [phone] 05/03/2024 1:30 PM EST Clinical Support [address] [address] Leslie Stapleton, RN documented as of this encounter Visit Diagnoses Diagnosis Attention deficit disorder (ADD) without hyperactivity documented in this encounter Additional Health Concerns Assessment Noted Time PHQ-9 Depression Total Score: 23 024 9:07 AM EDT documented as of this encounter Care Teams Boat Carpenter Relationship Specialty Start Date End Date Kadi Carvajal MD [address] [place] [phone] PCP - General Family Medicine 06/03/23 documented as of this encounter
--- OUTSIDE RECORDS SUMMARY | 2024-04-13 12:01 | XMS_ITS | Encounter Summary ---
Author Organization [employer] Address [address] [facility] 7t [place] [address] Care Team Providers Care Director Of Estate Name Role Phone Kadi Carvajal MD Primary Care Provider [phone] Reason for Visit * Reason Onset Date Comments Med Refill 10/17/2023 Encounter Details Date Type Department Care Team (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 Not on file Not on file documented as of this encounter Plan of Treatment Upcoming Encounters Date Type Department Care Team (Late st Contact Info) Description 04/25/2024 3:00 PM EST Office Visit [address] [address] Kadi Carvajal MD [address] [place] [phone] 05/03/2024 1:30 PM EST Clinical Support [address] [address] Leslie Stapleton, RN documented as of this encounter Visit Diagnoses Diagnosis Menopausal symptoms Symptomatic menopausal or female climacteric states documented in this encounter Additional Health Concerns Assessment Noted Time PHQ-9 Depression Total Score: 23 024 9:07 AM EDT documented as of this encounter Care Teams Director Of Estate Relationship Specialty Start Date End Date Kadi Carvajal MD [address] [place] [phone] PCP - General Family Medicine 06/03/23 documented as of this encounter
--- OUTSIDE RECORDS SUMMARY | 2024-04-13 12:01 | XMS_ITS | Encounter Summary ---
Author Organization [employer] Address [address] 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 Not on file documented as of this encounter Plan of Treatment Upcoming Encounters Date Type Department Care Team (Late st Contact Info) Description 04/25/2024 3:00 PM EST Office Visit [address] [address] Kadi Carvajal MD [address] [place] [phone] 05/03/2024 1:30 PM EST Clinical Support [address] [address] Leslie Stapleton, RN documented as of this encounter Visit Diagnoses Not on filedocumented in this encounter Additional Health Concerns Assessment Noted Time PHQ-9 Depression Total Score: 23 024 9:07 AM EDT documented as of this encounter Care Teams Flue Tile Press Operator Relationship Specialty Start Date End Date Kadi Carvajal MD [address] [place] [phone] PCP - General Family Medicine 06/03/23 documented as of this encounter
--- OUTSIDE RECORDS SUMMARY | 2024-04-13 12:02 | XMS_ITS | Encounter Summary ---
Author Organization [employer] Address [address] [place] [address] 7 [place] [address] Care Team Providers Care Radiologic Technologist Name Role Phone [place], [place] JOSÉ MIGUEL Primary Care Provider [phone] Kadi Carvajal MD Primary Care Provider [phone] Encounter Details Date Type Department Care Team (Latest Contact Info) Description 06/04/2020 Abstract [facility] CONVERSION[facility] Dental, Provider, DDS Social History Tobacco Use Types Packs/Day Years Used Date Smoking Tobacco: Never Assessed Comments Unknown Sex and Gender Information Value Date Recorded Sex Assigned at Female 05/25/2022 12:29 PM EST Legal Sex Female 8:38 PM EDT Gender Identity Female 05/25/2022 12:29 PM EST Sexual Orientation Lesbian or Park 06/03/2023 11 :42 AM EDT documented as of this encounter Plan of Treatment Upcoming Encounters Date Type Department Care Team (Late st Contact Info) Description 04/25/2024 3:00 PM EST Office Visit [facility] MEDICINE [address] [place] [address] Kadi Carvajal MD [address] [place] [address] 05/03/2024 1:30 PM EST Clinical Support [address] [address] Leslie Stapleton RN documented as of this encounter Visit Diagnoses Not on filedocumented in this encounter Care Teams Radiologic Technologist Relationship Specialty Start Date End Date [facility] Wanda [facility] [address] [place] [address] PCP - General Family Medicine 03/03/22 10/19/22 Kadi Carvajal MD [address] [place] [address] PCP - General Family Medicine 06/03/23 documented as of this encounter
--- OUTSIDE RECORDS SUMMARY | 2024-04-13 12:02 | XMS_ITS | Encounter Summary ---
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 Not on file documented as of this encounter Plan of Treatment Upcoming Encounters Date Type Department Care Team (Late st Contact Info) Description 04/25/2024 3:00 PM EST Office Visit [address] [address] Kadi Carvajal MD [address] [place] [address] 05/03/2024 1:30 PM EST Clinical Support [address] [address] Leslie Stapleton, RN documented as of this encounter Visit Diagnoses Diagnosis Anxiety Anxiety state, unspecified documented in this encounter Additional Health Concerns Assessment Noted Time PHQ-9 Depression Total Score: 23 024 9:07 AM EDT documented as of this encounter Care Teams Forestry Hunter Relationship Specialty Start Date End Date Kadi Carvajal MD [address] [place] [address] PCP - General Family Medicine 06/03/23 documented as of this encounter
--- OUTSIDE RECORDS SUMMARY | 2024-04-13 12:02 | XMS_ITS | Encounter Summary ---
Author Organization [employer] Address [address] [place] [address] 7 [place] [address] Care Team Providers Care Director Data Analytics Name Role Phone [facility] Wanda JOSÉ MIGUEL Primary Care Provider [phone] Kadi Carvajal MD Primary Care Provider [phone] Encounter Details Date Type Department Care Team (Latest Contact Info) Description 03/23/2018 Abstract [facility] CONVERSION[facility] Dental, Provider, DDS Social [...] Description 04/25/2024 3:00 PM EST Office Visit [facility] MEDICINE [address] [place] [address] Kadi Carvajal MD [address] [place] [address] 05/03/2024 1:30 PM EST Clinical Support [facility]ICINE [address] [place] [address] Leslie Stapleton RN documented as of this encounter Visit Diagnoses Not on filedocumented in this encounter Care Teams Director Data Analytics Relationship Specialty Start Date End Date [facility] [address] [place] [address] PCP - General Family Medicine 03/03/22 10/19/22 Kadi Carvajal MD [address] [place] [address] PCP - General Family Medicine 06/03/23 documented as of this encounter
--- OUTSIDE RECORDS SUMMARY | 2024-04-13 12:02 | XMS_ITS | Encounter Summary ---
Author Organization [employer] Address 75 [facility] 7t [place] [address] Care Team Providers Care Risk Compliance Analyst Name Role Phone Kadi Carvajal MD Primary Care Provider Reason for Visit * Reason Onset Date Comments Med Refill 04/03/2024 Encounter Details Date Type Department Care Team ([facility] st Contact Info) Description 04/03/[address] 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 Not on file documented as of this encounter Plan of Treatment Upcoming Encounters Date Type Department Care Team (Late st Contact Info) Description 04/25/2024 3:00 PM EST Office Visit [address] [address] Kadi Carvajal MD [address] [place] [address] 05/03/2024 1:30 PM EST Clinical Support [address] [address] Leslie Stapleton RN documented as of this encounter Visit Diagnoses Diagnosis Anxiety Anxiety state, unspecified documented in this encounter Additional Health Concerns Assessment Noted Time PHQ-9 Depression Total Score: 23 024 9:07 AM EDT documented as of this encounter Care Teams Risk Compliance Analyst Relationship Specialty Start Date End Date Kadi Carvajal MD [address] [place] [address] PCP - General Family Medicine 06/03/23 documented as of this encounter
--- OUTSIDE RECORDS SUMMARY | 2024-04-13 12:02 | XMS_ITS | Encounter Summary ---
Author Organization [employer] Address 75 [facility] 7t [place] [address] Care Team Providers Care Hoop Punch And Coiler Operator Helper Name Role Phone Kadi Carvajal MD Primary Care Provider [phone] Reason for Visit * Reason Onset Date Comments Med Refill 07/06/2023 Encounter Details Date Type Department Care Team ([facility] st Contact Info) Description 07/06/2023 Refill [facility] MEDICINE 230 [place], [place] [phone] Kadi Carvajal MD 230 [place], [place] [phone] Attention deficit disorder (ADD) without hyperactivity Social [...] 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 Not on file documented as of this encounter Miscellaneous Notes * Telephone Encounter - Kadi Carvajal MD - 07/08/2023 8:10 AM EDT Already sent in 30 and 10mg XR 07/06/23 documented in this encounter Plan of Treatment Upcoming Encounters Date Type Department Care Team (Late st Contact Info) Description 04/25/2024 3:00 PM EST Office Visit [address] [address] Kadi Carvajal MD [address] [place] [address] 05/03/2024 1:30 PM EST Clinical Support [address] [address] Leslie Stapleton RN documented as of this encounter Visit Diagnoses Diagnosis Attention deficit disorder (ADD) without hyperactivity documented in this encounter Additional Health Concerns Assessment Noted Time PHQ-9 Depression Total Score: 23 024 9:07 AM EDT documented as of this encounter Care Teams Hoop Punch And Coiler Operator Helper Relationship Specialty Start Date End Date Kadi Carvajal MD [address] [place] [address] PCP - General Family Medicine 06/03/23 documented as of this encounter
--- OUTSIDE RECORDS SUMMARY | 2024-04-13 12:02 | XMS_ITS | Encounter Summary ---
Author Organization [employer] Address [address] [facility] 7t [place] [address] Care Team Providers Care Director Of Group Counseling Program Name Role Phone Kadi Carvajal MD Primary Care Provider [phone] Reason for Visit * Reason Onset Date Comments Med Refill 03/23/2024 Encounter Details Date Type Department Care Team (Late st Contact Info) Description 03/23/2024 Refill [facility] WALK-IN CENTER [address] [place] [address] Selam Pickard MD [address] [place] [address] Mild persistent asthma without complication Social History [...] 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 Not on file documented as of this encounter Plan of Treatment Upcoming Encounters Date Type Department Care Team (Late st Contact Info) Description 04/25/2024 3:00 PM EST Office Visit [facility] MEDICINE [address] [place] [address] Kadi Carvajal MD [address] [place] [address] 05/03/2024 1:30 PM EST Clinical Support [address] [address] Leslie Stapleton, RN documented as of this encounter Visit Diagnoses Diagnosis Mild persistent asthma without complication documented in this encounter Additional Health Concerns Assessment Noted Time PHQ-9 Depression Total Score: 23 024 9:07 AM EDT documented as of this encounter Care Teams Director Of Group Counseling Program Relationship Specialty Start Date End Date Kadi Carvajal MD [address] [place] [address] PCP - General Family Medicine 06/03/23 documented as of this encounter
--- OUTSIDE RECORDS SUMMARY | 2024-04-13 12:02 | XMS_ITS | Encounter Summary ---
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 Not on file documented as of this encounter Plan of Treatment Upcoming Encounters Date Type Department Care Team (Late st Contact Info) Description 04/25/2024 3:00 PM EST Office Visit [address] [address] Kadi Carvajal MD [address] [place] [address] 05/03/2024 1:30 PM EST Clinical Support [address] [address] Leslie Stapleton RN documented as of this encounter Visit Diagnoses Diagnosis Seasonal allergic rhinitis, unspecified trigger documented in this encounter Additional Health Concerns Assessment Noted Time PHQ-9 Depression Total Score: 23 024 9:07 AM EDT documented as of this encounter Care Teams Hair Weaver Relationship Specialty Start Date End Date Kadi Carvajal MD [address] [place] [address] PCP - General Family Medicine 06/03/23 documented as of this encounter
--- OUTSIDE RECORDS SUMMARY | 2024-04-13 12:02 | XMS_ITS | Encounter Summary ---
Author Organization [employer] Address [address] [place] [address] 7t [place] [address] Care Team Providers Care Dance Coach Name Role Phone Wanda Fragoso JOSÉ MIGUEL Primary Care Provider [phone] Kadi Carvajal MD Primary Care Provider [phone] Reason for Visit * Reason Comments Med Refill Encounter Details Date Type Department Care Team (Late st Contact Info) Description 04/22/2022 Refill [facility] MEDICAL [address] [place] [address] Driss Mar NP [address] [place] [address] Mild persistent asthma without complication (Primary Dx); Mild intermittent asthma, uncomplicated Social History Tobacco Use Types Packs/Day Years Used Date Smoking Tobacco: Never Assessed Comments Unknown Sex and Gender Information Value Date Recorded Sex Assigned at Female 05/25/2022 12:29 PM EST Legal Sex Female 8:38 PM EDT Gender Identity Female 05/25/2022 12:29 PM EST Sexual Orientation Lesbian or Park 06/03/2023 11 :42 AM EDT documented as of this encounter Miscellaneous Notes * Telephone Encounter - Lulu Faulkner - 04/29/2022 10:39 AM EST Message received from call service: Message: Requesting refills for clonazepam and albuterol. * Telephone Encounter - Lulu Faulkner - 04/29/2022 10:39 AM EST * Telephone Encounter - Phuc Moore - 04/22/2022 10:49 AM EST Last appt 12/10, No pending appts. To covering provider MPJ. documented in this encounter Plan of Treatment Upcoming Encounters Date Type Department Care Team (Late st Contact Info) Description 04/25/2024 3:00 PM EST Office Visit [address] [address] Kadi Carvajal MD [address] [place] [address] 05/03/2024 1:30 PM EST Clinical Support [address] [address] Leslie Stapleton RN documented as of this encounter Visit Diagnoses Diagnosis Mild persistent asthma without complication- Primary Mild intermittent asthma, uncomplicated documented in this encounter Care Teams Dance Coach Relationship Specialty Start Date End Date [place], [place], [facility] [address] [place] [address] PCP - General Family Medicine 03/03/22 10/19/22 Kadi Carvajal MD [address] [place] [address] PCP - General Family Medicine 06/03/23 documented as of this encounter
--- OUTSIDE RECORDS SUMMARY | 2024-04-13 12:02 | XMS_ITS | Encounter Summary ---
Author Organization [employer] Address [address] [place] [address] 7t [place] [address] Care Team Providers Care Oil Well Services Supervisor Name Role Phone Kadi Carvajal MD Primary Care Provider [phone] Encounter Details Date Type Department Care Team (Late st Contact Info) Description 04/19/[address] 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 Not on file documented as of this encounter Plan of Treatment Upcoming Encounters Date Type Department Care Team (Late st Contact Info) Description 04/25/2024 3:00 PM EST Office Visit [facility] MEDICINE [address] [place] [address] Kadi Carvajal MD [address] [place] [address] 05/03/2024 1:30 PM EST Clinical Support [facility] [address] [place] [address] [place] [address] Leslie Stapleton, RN documented as of this encounter Visit Diagnoses Not on filedocumented in this encounter Care Teams Oil Well Services Supervisor Relationship Specialty Start Date End Date Kadi Carvajal MD [address] [place] [address] PCP - General Family Medicine 06/03/23 documented as of this encounter
--- OUTSIDE RECORDS SUMMARY | 2024-04-13 12:02 | XMS_ITS | Encounter Summary ---
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 VD called patient to advise on above message, LMOM * Telephone Encounter - Davida Aleman - 04/25/2023 9:48 AM EST Sent to JL and MFS to advise re: refusal for Flovent inhaler. documented in this encounter Plan of Treatment Upcoming Encounters Date Type Department Care Team (Late st Contact Info) Description 04/25/2024 3:00 PM EST Office Visit [address] [address] Kadi Carvajal MD [address] [place] [address] 05/03/2024 1:30 PM EST Clinical Support [address] [address] Leslie Stapleton, RN documented as of this encounter Visit Diagnoses Diagnosis Mild intermittent asthma, uncomplicated Mild persistent asthma without complication documented in this encounter Care Teams Cardiac Sonographer Relationship Specialty Start Date End Date Kadi Carvajal MD [address] [place] [address] PCP - General Family Medicine 06/03/23 documented as of this encounter
--- OUTSIDE RECORDS SUMMARY | 2024-04-13 12:02 | XMS_ITS | Encounter Summary ---
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 Not on file documented as of this encounter Plan of Treatment Upcoming Encounters Date Type Department Care Team (Late st Contact Info) Description 04/25/2024 3:00 PM EST Office Visit [address] [address] Kadi Carvajal MD [address] [place] [address] 05/03/2024 1:30 PM EST Clinical Support [address] [address] Leslie Stapleton, RN documented as of this encounter Visit Diagnoses Diagnosis Attention deficit disorder (ADD) without hyperactivity documented in this encounter Additional Health Concerns Assessment Noted Time PHQ-9 Depression Total Score: 23 024 9:07 AM EDT documented as of this encounter Care Teams Association Executive Relationship Specialty Start Date End Date Kadi Carvajal MD [address] [place] [address] PCP - General Family Medicine 06/03/23 documented as of this encounter
== END 2024-04-13 10:36 | disposition home or self-care (01) ==
LOC: HO.US 10:35
PROVIDERS: PCP General Practice; Visit Provider Physician Assistant Surgical
DX: I83.11 Varicose veins of right lower extremity with inflammation (principal); I83.12 Varicose veins of left lower extremity with inflammation
CPT/HCPCS: 93970

== ENCOUNTER → 2024-04-13 10:36 | Outpatient (BNV) | payer MEDICAID, SELFPAY | PROVIDERS: PCP General Practice; Visit Provider Radiology Diagnostic Radiology | DX: I83.11 Varicose veins of right lower extremity with inflammation (principal) | CPT/HCPCS: 93970 ==

== ENCOUNTER 2024-04-24 13:49 | Outpatient (AMB) | payer MEDICAID, SELFPAY ==
--- NOTE | 2024-04-24 13:50 | A.OFFVIS_ITS ---
Intake Visit Reasons: Follow Up 04/13 US Intake Note: Patient presents for follow up US, performed on 04/13/24. No complaints. Accompanied by: Self / Same As Patient Allergies Sulfa (Sulfonamide Antibiotics) Allergy (Mild, Verified 04/24/24 13:51) Hives HPI HPI Follow Up 04/13 US: Details: Sara is presenting today on a follow up to venous insufficiency, performed on 04/13/2024. She continues with bilateral lower extremity swelling with pain. She continues to have lumps/lipoedema. She has used compression stockings, elevation, and physical activity for more than 28 days now; she has been using them for quite a few years now. They have been helping only a little bit. She has no new concerns today. [facility] Social History Alcohol intake: current Alcohol intake frequency: holidays/special occasions only Patient Tobacco Use Status: Former Tobacco user Review of Systems Const Reports as per HPI and Denies weakness ENT Reports Normal hearing present and Denies dizziness Card Reports as per HPI, Denies chest pain, Denies chest pain at rest, Denies chest pain with activity, Denies dyspnea and Denies dyspnea on exertion Resp Reports as per HPI, Denies cough, Denies dyspnea and Denies dyspnea on exertion GI Reports as per HPI, Denies abdominal pain, Denies nausea and Denies vomiting Musc Denies numbness Skin/Breast Reports as per HPI, Denies erythema and Denies wounds Neuro Reports Normal hearing present, Denies dizziness, Denies numbness, Denies Sensory deficit (Neuro) and Denies weakness Psych Reports no additional complaints Endo Reports no additional complaints Physical Exam Const General: healthy appearing and no acute distress Orientation/consciousness: patient oriented x3 HEENT Head: Yes normal to inspection Ears: hearing grossly normal bilaterally Mouth: Normal oral and palatal mucosa present Resp Effort & Inspection: normal respiratory effort and able to speak in complete sentences Auscultation: clear to auscultation bilaterally Cardio Jugular venous distension: no JVD Rate: regular rate Rhythm: regular rhythm Heart sounds: S1 normal heart sound present and S2 normal heart sound present Bruits: no abdominal aortic bruits, no carotid bruits, no femoral bruits and no renal bruits Peripheral pulses: Peripheral pulses 2+ throughout GI Inspection: Yes normal to inspection Palpation (GI): No Abdominal aortic bruit present Skin General skin exam: no rashes or lesions noted Wounds: no wounds Hair: normal Neuro General: patient oriented x3 Cranial nerves: Yes Normal hearing present Cognition (Neuro): normal cognition Gait exam (Neuro): Normal gait present Motor exam (neuro): 5/5 motor strength present throughout Sensory Exam: No Sensory deficit (Neuro) Extrem Other: Bilateral lower extremities: trace peripheral edema noted. Bumpy areas noted on both side of the tibia and around the calf. Right in cm: Thigh 46 Knee 37.25 Calf 38.5 Ankle 23.5 Left in cm: Thigh 48 Knee 39 Calf 39.25 Ankle 23 General: Yes normal to inspection, Yes full ROM, Yes capillary refill normal and Yes normal gait Results Reviewed Results Reviewed: Brief summary of venous insufficiency testing is as follows: right great saphenous vein: negative right small saphenous vein: negative right accessory vein: none present left great saphenous vein: negative left small saphenous vein: negative left accessory vein: none present Please note there is no evidence of any venous aneurysms or significant tortuosity Assessment & Plan Assessment & Plan (1) Lymphedema: Code(s): I89.0 - Lymphedema, not elsewhere classified Category: Medical Plan: Sara is presenting today on a follow up to venous insufficiency ultrasound, performed on 04/13/2024. There was no insufficiency found on the ultrasound. She does continue with the same symptoms of bilateral lower extremity swelling with lipoedema as well as pain. She has used more than 28 days of compression stockings, elevation, and physical activity with minimal relief. In short the patient has late onset lymphedema. The patient has been on conservative treatment for at least 3 months (she has been on treatment for many years) with minimal relief. Patient has tried 30 mm of mercury compression garments, elevation, exercise, and a healthy diet and doing manual says self MLD to the best of their ability for over 4 weeks but with no significant relief. She has been compliant with the program but has provided minimal relief. In addition, on physical, we are noticing hyperpigmentation, lymphorrhea, and hyperplasia. It appears that she has stage 2 lymphedema. Patient has completed multiple forms of conservative therapy yet significant symptoms remain. Patient requires the use of a pneumatic compression device which we will assist in trying to have the patient obtain them. A pneumatic compression device will help reduce swelling and other lymphedema comorbidities. We will be having her return tomorrow for a lymphedema clinic with [facility]. Thank you for allowing us to assist in this patient's care. Coding Level of Care Code Est Pt Level 4 (43228) Diagnoses Lymphedema I89.0 Comment Review of venous insufficiency ultrasound
--- OUTSIDE RECORDS SUMMARY | 2024-04-24 13:57 | XMS_ITS | Encounter Summary ---
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 file Not on file documented as of this encounter Miscellaneous Notes * Telephone Encounter - Kadi Carvajal MD - 07/08/2023 8:10 AM EDT Already sent in 30 and 10mg XR 07/06/23 documented in this encounter Plan of Treatment Upcoming Encounters Date Type Department Care Team (Late st Contact Info) Description 04/25/2024 3:00 PM EST Office Visit [address] [address] Kadi Carvajal MD [address] [place] [address] 05/03/2024 1:30 PM EST Clinical Support [address] [address] Leslie Stapleton RN documented as of this encounter Visit Diagnoses Diagnosis Attention deficit disorder (ADD) without hyperactivity documented in this encounter Additional Health Concerns Assessment Noted Time PHQ-9 Depression Total Score: 23 024 9:07 AM EDT documented as of this encounter Care Teams Hand Touch Up Painter Relationship Specialty Start Date End Date Kadi Carvajal MD [address] [place] [address] PCP - General Family Medicine 06/03/23 documented as of this encounter
--- OUTSIDE RECORDS SUMMARY | 2024-04-24 13:57 | XMS_ITS | Encounter Summary ---
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 Not on file documented as of this encounter Miscellaneous Notes * Telephone Encounter - Jovi Gray DMD - 11/09/2023 8:01 AM EDT I have already ordered the mouthwash 5 days ago documented in this encounter Plan of Treatment Upcoming Encounters Date Type Department Care Team (Late st Contact Info) Description 04/25/2024 3:00 PM EST Office Visit [address] [address] Kadi Carvajal MD [address] [place] [address] 05/03/2024 1:30 PM EST Clinical Support [address] [address] Leslie Stapleton, RN documented as of this encounter Visit Diagnoses Not on filedocumented in this encounter Additional Health Concerns Assessment Noted Time PHQ-9 Depression Total Score: 23 024 9:07 AM EDT documented as of this encounter Care Teams Six Horse Hitch Driver Relationship Specialty Start Date End Date Kadi Carvajal MD [address] [place] [address] PCP - General Family Medicine 06/03/23 documented as of this encounter
--- OUTSIDE RECORDS SUMMARY | 2024-04-24 13:57 | XMS_ITS | Encounter Summary ---
Author Organization [employer] Address [address] [place] [address] 7t [place] [address] Care Team Providers Care Back Pad Inspector Name Role Phone Kadi Carvajal MD Primary Care Provider [phone] Reason for Visit * Reason Comments Eye Exam Encounter Details Date Type Department Care Team (Late st Contact Info) Description 04/23/2024 3:30 PM EST Office Visit [facility] [address] [place] [address] Mary Oviedo, BHAVYA [address] [place] [address] Glaucoma suspect of both eyes (Primary Dx); High myopia, bilateral; Elevated blood pressure reading Social History Tobacco Use Types Packs/Day Years Used Date Smoking Tobacco: Former Cigarettes Smokeless Tobacco: Never Tobacco Cessation:Counseling Given: Not Answered Alcohol Use Standard Drinks/Week [...] 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 Healthy rim tissue and normal OCT nerve last year. Intraocular pressure (IOP) low, monitor 1 year High myopia, bilateral Spec Rx updated - note modified Rx (more plus) per patient preference. Dispensed diagnostic CL, CL Rx finalized or RTC if any problems Elevated blood pressure reading Recommend eval with PCP within 2 weeks, pt ed documented in this encounter Plan of Treatment Upcoming Encounters Date Type Department Care Team (Late st Contact Info) Description 04/25/2024 3:00 PM EST Office Visit [facility] [address] [place], [place] [phone] Kadi Carvajal MD [address] [place] [address] 05/03/2024 1:30 PM EST Clinical Support [facility] [address] [place] [address] Leslie Stapleton RN documented as of this encounter Visit Diagnoses Diagnosis Glaucoma suspect of both eyes- Primary Unspecified preglaucoma High myopia, bilateral Myopia Elevated blood pressure reading Elevated blood pressure reading without diagnosis of hypertension documented in this encounter Additional Health Concerns Assessment Noted Time PHQ-9 Depression Total Score: 23 024 9:07 AM EDT documented as of this encounter Care Teams Back Pad Inspector Relationship Specialty Start Date End Date Kadi Carvajal MD [address] [place] [address] PCP - General Family Medicine 06/03/23 documented as of this encounter
--- OUTSIDE RECORDS SUMMARY | 2024-04-24 13:57 | XMS_ITS | Encounter Summary ---
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 Not on file documented as of this encounter Plan of Treatment Upcoming Encounters Date Type Department Care Team (Late st Contact Info) Description 04/25/2024 3:00 PM EST Office Visit [address] [address] Kadi Carvajal MD [address] [place] [address] 05/03/2024 1:30 PM EST Clinical Support [address] [address] Leslie Stapleton, RN documented as of this encounter Visit Diagnoses Not on filedocumented in this encounter Additional Health Concerns Assessment Noted Time PHQ-9 Depression Total Score: 23 024 9:07 AM EDT documented as of this encounter Care Teams Human Services Instructor Relationship Specialty Start Date End Date Kadi Carvajal MD [address] [place] [phone] PCP - General Family Medicine 06/03/23 documented as of this encounter
--- OUTSIDE RECORDS SUMMARY | 2024-04-24 13:57 | XMS_ITS | Encounter Summary ---
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 Not on file documented as of this encounter Plan of Treatment Upcoming Encounters Date Type Department Care Team (Late st Contact Info) Description 04/25/2024 3:00 PM EST Office Visit [facility] [address] [place] [address] Kadi Carvajal MD [address] [place] [address] 05/03/2024 1:30 PM EST Clinical Support [facility] [address] [place] [address] [place] [address] Leslie Stapleton, RN documented as of this encounter Visit Diagnoses Not on filedocumented in this encounter Care Teams Genetics Physician Relationship Specialty Start Date End Date Kadi Carvajal MD 230 [place] [address] PCP - General Family Medicine 06/03/23 documented as of this encounter
--- OUTSIDE RECORDS SUMMARY | 2024-04-24 13:57 | XMS_ITS | Encounter Summary ---
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 Not on file documented as of this encounter Plan of Treatment Upcoming Encounters Date Type Department Care Team (Late st Contact Info) Description 04/25/2024 3:00 PM EST Office Visit [facility] [address] [place] [address] Kadi Carvajal MD [address] [place] [address] 05/03/2024 1:30 PM EST Clinical Support [address] [address] Leslie Stapleton, RN documented as of this encounter Visit Diagnoses Diagnosis Mild persistent asthma without complication documented in this encounter Additional Health Concerns Assessment Noted Time PHQ-9 Depression Total Score: 23 024 9:07 AM EDT documented as of this encounter Care Teams Contact Finger Assembler Relationship Specialty Start Date End Date Kadi Carvajal MD [address] [place] [address] PCP - General Family Medicine 06/03/23 documented as of this encounter
--- OUTSIDE RECORDS SUMMARY | 2024-04-24 13:57 | XMS_ITS | Encounter Summary ---
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
--- OUTSIDE RECORDS SUMMARY | 2024-04-24 13:57 | XMS_ITS | Encounter Summary ---
Author Organization [employer] Address [address] [facility] 7t [place] [address] Care Team Providers Care Exceptional Children Teacher Name Role Phone Kadi Carvajal MD Primary Care Provider [phone] Reason for Visit * Reason Onset Date Comments Med Refill 09/14/2023 Encounter Details Date Type Department Care Team ([facility] st Contact Info) Description 09/14/2023 Refill [facility] 230 [place], [place] [phone] Kadi Carvajal MD 230 [place], [place] [phone] Attention deficit disorder (ADD) without hyperactivity Social [...] 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 Not on file documented as of this encounter Plan of Treatment Upcoming Encounters Date Type Department Care Team (Late st Contact Info) Description 04/25/2024 3:00 PM EST Office Visit [address] [address] Kadi Carvajal MD [address] [place] [address] 05/03/2024 1:30 PM EST Clinical Support [address] [address] Leslie Stapleton, RN documented as of this encounter Visit Diagnoses Diagnosis Attention deficit disorder (ADD) without hyperactivity documented in this encounter Additional Health Concerns Assessment Noted Time PHQ-9 Depression Total Score: 23 024 9:07 AM EDT documented as of this encounter Care Teams Exceptional Children Teacher Relationship Specialty Start Date End Date Kadi Carvajal MD [address] [place] [address] PCP - General Family Medicine 06/03/23 documented as of this encounter
--- OUTSIDE RECORDS SUMMARY | 2024-04-24 13:57 | XMS_ITS | Encounter Summary ---
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 Not [...] Description 04/25/2024 3:00 PM EST Office Visit [facility] [address] [place] [address] Kadi Carvajal MD [address] [place] [address] 05/03/2024 1:30 PM EST Clinical Support [address] [address] Leslie Stapleton, RN documented as of this encounter Visit Diagnoses Not on filedocumented in this encounter Additional Health Concerns Assessment Noted Time PHQ-9 Depression Total Score: 23 024 9:07 AM EDT documented as of this encounter Care Teams Deposition Operator Relationship Specialty Start Date End Date Kadi Carvajal MD [address] [place] [address] PCP - General Family Medicine 06/03/23 documented as of this encounter
--- OUTSIDE RECORDS SUMMARY | 2024-04-24 13:57 | XMS_ITS | Encounter Summary ---
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 Not on file documented as of this encounter Plan of Treatment Upcoming Encounters Date Type Department Care Team (Late st Contact Info) Description 04/25/2024 3:00 PM EST Office Visit [address] [address] Kadi Carvajal MD [address] [place] [address] 05/03/2024 1:30 PM EST Clinical Support [address] [address] Leslie Stapleton RN documented as of this encounter Visit Diagnoses Diagnosis Anxiety Anxiety state, unspecified documented in this encounter Additional Health Concerns Assessment Noted Time PHQ-9 Depression Total Score: 23 024 9:07 AM EDT documented as of this encounter Care Teams Flatwork Finisher Hand Relationship Specialty Start Date End Date Kadi Carvajal MD [address] [place] [address] PCP - General Family Medicine 06/03/23 documented as of this encounter
--- OUTSIDE RECORDS SUMMARY | 2024-04-24 13:57 | XMS_ITS | Encounter Summary ---
Author Organization [employer] Address [address] [place] [address] 7 [place] [address] Care Team Providers Care Nutter Up Name Role Phone [place], [place] JOSÉ MIGUEL Primary Care Provider [phone] Kadi Carvajal MD Primary Care Provider [phone] Encounter Details Date Type Department Care Team [...] Description 04/25/2024 3:00 PM EST Office Visit [facility] MEDICINE [address] [place] [address] Kadi Carvajal MD [address] [place] [address] 05/03/2024 1:30 PM EST Clinical Support [address] [address] Leslie Stapleton RN documented as of this encounter Visit Diagnoses Not on filedocumented in this encounter Care Teams Nutter Up Relationship Specialty Start Date End Date [facility] W[facility] [address] [place] [address] PCP - General Family Medicine 03/03/22 10/19/22 Kadi Carvajal MD [address] [place] [address] PCP - General Family Medicine 06/03/23 documented as of this encounter
--- OUTSIDE RECORDS SUMMARY | 2024-04-24 13:57 | XMS_ITS | Encounter Summary ---
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 Not on file documented as of this encounter Plan of Treatment Upcoming Encounters Date Type Department Care Team (Late st Contact Info) Description 04/25/2024 3:00 PM EST Office Visit [facility] [address] [place] [address] Kadi Carvajal MD [address] [place] [address] 05/03/2024 1:30 PM EST Clinical Support [address] [address] Leslie Stapleton, RN documented as of this encounter Visit Diagnoses Diagnosis Mild persistent asthma without complication documented in this encounter Additional Health Concerns Assessment Noted Time PHQ-9 Depression Total Score: 23 024 9:07 AM EDT documented as of this encounter Care Teams Fluid Power Mechanic Relationship Specialty Start Date End Date Kadi Carvajal MD [address] [place] [address] PCP - General Family Medicine 06/03/23 documented as of this encounter
--- OUTSIDE RECORDS SUMMARY | 2024-04-24 13:57 | XMS_ITS | Encounter Summary ---
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 [...] Description 04/25/2024 3:00 PM EST Office Visit [facility] [address] [place] [address] Kadi Carvajal MD [address] [place] [address] 05/03/2024 1:30 PM EST Clinical Support [facility] [address] [place] [address] Leslie Stapleton RN documented as of this encounter Visit Diagnoses Not on filedocumented in this encounter Additional Health Concerns Assessment Noted Time PHQ-9 Depression Total Score: 23 024 9:07 AM EDT documented as of this encounter Care Teams Horse Shoer Relationship Specialty Start Date End Date Kadi Carvajal MD [address] [place] [address] PCP - General Family Medicine 06/03/23 documented as of this encounter
--- OUTSIDE RECORDS SUMMARY | 2024-04-24 13:57 | XMS_ITS | Encounter Summary ---
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 Not on file documented as of this encounter Plan of Treatment Upcoming Encounters Date Type Department Care Team (Late st Contact Info) Description 04/25/2024 3:00 PM EST Office Visit [address] [address] Kadi Carvajal MD [address] [place] [address] 05/03/2024 1:30 PM EST Clinical Support [address] [address] Leslie Stapleton RN documented as of this encounter Visit Diagnoses Diagnosis Anxiety Anxiety state, unspecified documented in this encounter Additional Health Concerns Assessment Noted Time PHQ-9 Depression Total Score: 23 024 9:07 AM EDT documented as of this encounter Care Teams Infantry Indirect Fire Crewmember Relationship Specialty Start Date End Date Kadi Carvajal MD [address] [place] [address] PCP - General Family Medicine 06/03/23 documented as of this encounter
--- OUTSIDE RECORDS SUMMARY | 2024-04-24 13:57 | XMS_ITS | Encounter Summary ---
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 Not on file documented as of this encounter Plan of Treatment Upcoming Encounters Date Type Department Care Team (Late st Contact Info) Description 04/25/2024 3:00 PM EST Office Visit [address] [address] Kadi Carvajal MD [address] [place] [address] 05/03/2024 1:30 PM EST Clinical Support [address] [address] Leslie Stapleton, JUAN documented as of this encounter Visit Diagnoses Diagnosis Anxiety Anxiety state, unspecified documented in this encounter Care Teams Cook Syrup Maker Relationship Specialty Start Date End Date Kadi Carvajal MD [address] [place] [address] PCP - General Family Medicine 06/03/23 documented as of this encounter
--- OUTSIDE RECORDS SUMMARY | 2024-04-24 13:57 | XMS_ITS | Encounter Summary ---
Author Organization [employer] Address [address] 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 Not on file documented as of this encounter Plan of Treatment Upcoming Encounters Date Type Department Care Team (Late st Contact Info) Description 04/25/2024 3:00 PM EST Office Visit [address] [address] Kadi Carvajal MD [address] [place] [address] 05/03/2024 1:30 PM EST Clinical Support [address] [address] Leslie Stapleton, RN documented as of this encounter Visit Diagnoses Not on filedocumented in this encounter Additional Health Concerns Assessment Noted Time PHQ-9 Depression Total Score: 23 024 9:07 AM EDT documented as of this encounter Care Teams Salon Receptionist Relationship Specialty Start Date End Date Kadi Carvajal MD [address] [place] [phone] PCP - General Family Medicine 06/03/23 documented as of this encounter
--- OUTSIDE RECORDS SUMMARY | 2024-04-24 13:57 | XMS_ITS | Encounter Summary ---
Author Organization [employer] Address [address] [place] [address] 7 [place] [address] Care Team Providers Care Lead Printer Name Role Phone [facility] Wanda JOSÉ MIGUEL Primary Care Provider [phone] Kadi Carvajal MD Primary Care Provider [phone] Encounter Details Date Type Department Care Team [...] Description 04/25/2024 3:00 PM EST Office Visit [facility] [address] [place] [address] Kadi Carvajal MD [address] [place] [address] 05/03/2024 1:30 PM EST Clinical Support [facility] [address] [place] [address] Leslie Stapleton RN documented as of this encounter Visit Diagnoses Not on filedocumented in this encounter Care Teams Lead Printer Relationship Specialty Start Date End Date [facility] F[facility] [address] [place] [address] PCP - General Family Medicine 03/03/22 10/19/22 Kadi Carvajal MD [address] [place] [address] PCP - General Family Medicine 06/03/23 documented as of this encounter
--- OUTSIDE RECORDS SUMMARY | 2024-04-24 13:57 | XMS_ITS | Encounter Summary ---
Author Organization [employer] Address [address] [facility] [address] 7t [place] [address] Care Team Providers Care Physical Security Specialist Name Role Phone Kadi Carvajal MD Primary Care Provider Encounter Details Date Type Department Care Team (Late st Contact Info) Description 04/13/2024 Orders Only [facility] External Provider, [facility] Social History Tobacco Use Types Packs/Day Years [...] is your housing situation today? 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 Not on file documented as of this encounter Plan of Treatment Upcoming Encounters Date Type Department Care Team (Late st Contact Info) Description 04/25/2024 3:00 PM EST Office Visit [address] [address] Kadi Carvajal MD [address] [place] [address] 05/03/2024 1:30 PM EST Clinical Support [address] [address] Leslie Stapleton RN documented as of this encounter Procedures Procedure Name Priority Date/Time Associated Diagnosis Comments [facility] LOWER EXTREMITY VENOUS INSUFFICIENCY BILATERAL Routine 04/13/2024 11:01 AM EST documented in this encounter Results * [facility] Lower Extremity Venous Insufficiency Bilateral (04/13/2024 11:01 AM EST) 04/13/2024 11:0 1 AM EST Narrative [facility] IMAGING - 04/16/2024 8:23 AM EST ? [facility] ?[address] ?[place] [address] ? Ultrasound Report ? Signed ? Patient: Valdo,Sara ?MR#: [id number] ? : 1970 ?Acct:[id number] ? Age/Sex: 53 / F ?ADM Date: 01/24/25 ? Loc: HO.US ? Attending Dr: Caitlin Brothers PA-C ? Ordering Physician: Caitlin Brothers PA-C ?? Date of Service: 04/13/24 ?? Procedure(s): US venous insuf bilat ?? Accession Number(s): [id number] ? cc: Kadi Carvajal; Caitlin Brothers PA-C ? EXAMINATION: ?? US LOWER EXTREMITY VENOUS (REFLUX EXAM), BILATERAL ? CLINICAL INFORMATION: ?? Varices with inflammation, right lower extremity. ? COMPARISON: ?? None. ? TECHNIQUE: ?? Color flow triplex imaging and compression Doppler was performed to ?? evaluate both the deep and the superficial systems bilaterally. To ?? evaluate the superficial system, the examination was performed in the ?? upright position. Color-flow Doppler ultrasound and compression ?? ultrasound were utilized. In addition, maneuvers were utilized to ?? demonstrate reflux. ? FINDINGS: ? 1. DEEP VENOUS ULTRASOUND OF THE RIGHT LOWER EXTREMITY: ?? Common Femoral Vein: Compressible, normal respiratory variation and ?? augmented flow. ? Femoral Vein: Compressible, normal color flow and augmentation. ?? Popliteal Vein: Compressible, normal augmentation. ? Deep Reflux: There is no evidence of reflux in the deep system in ?? either the common femoral vein, superficial femoral or the popliteal ?? vein. ? There is no evidence of a Diane's cyst. ? 2. SUPERFICIAL ULTRASOUND WITH DOPPLER OF RIGHT LOWER EXTREMITY: ? GREAT SAPHENOUS VEIN: ?? Saphenofemoral Junction: 0.6 cm; Reflux: 0 ms ?? Proximal Thigh: 0.2 cm; Reflux: 0 ms ?? Mid Thigh: 0.3 cm; Reflux: 0 ms ?? Distal Thigh: 0.2 cm; Reflux: 0 ms ?? At Knee: 0.3 cm; Reflux: 0 ms ?? Proximal Calf: 0.1 cm; Reflux: 0 ms ?? Mid Calf: 0.1 cm; Reflux: 0 ms ?? Distal Calf: 0.1 cm; Reflux: 0 ms ? DUPLICATED MEDIAL GREAT SAPHENOUS VEIN: ?? Diameter: None imaged ?? Reflux: NA ? DUPLICATED LATERAL GREAT SAPHENOUS VEIN: ?? Diameter: 0.3 ?? Reflux: NA ? SMALL SAPHENOUS VEIN: ?? Saphenopopliteal Junction: 0.2 cm; Reflux: 0 ms ?? Proximal: 0.1 cm; Reflux: 0 ms ?? Distal: 0.1 cm; Reflux: 0 ms ? VEIN OF GIACOMINI: ?? Size: 0.1 ?? Reflux: NA ? PERFORATORS: ?? Location: None imaged ?? Size: NA ?? Reflux: NA ? VARICOSITIES: ?? Location: None imaged. ?? Size: NA ?? Reflux: NA ? 3. DEEP VENOUS ULTRASOUND OF THE LEFT LOWER EXTREMITY: ?? Common Femoral Vein: Compressible, normal respiratory variation and ?? augmented flow. ? Femoral Vein: Compressible, normal color flow and augmentation. ?? Popliteal Vein: Compressible, normal augmentation. ? Deep Reflux: There is no evidence of reflux in the deep system in ?? either the common femoral vein, superficial femoral or the popliteal ?? vein. ? There is no evidence of a Diane's cyst. ? 4. SUPERFICIAL ULTRASOUND WITH DOPPLER OF LEFT LOWER EXTREMITY: ? GREAT SAPHENOUS VEIN: ?? Saphenofemoral Junction: 0.7 cm; Reflux: 0 ms ?? Proximal Thigh: 0.3 cm; Reflux: 0 ms ?? Mid Thigh: 0.2 cm; Reflux: 0 ms ?? Distal Thigh: 0.2 cm; Reflux: 0 ms ?? At Knee: 0.2 cm; Reflux: 0 ms ?? Proximal Calf: 0.1 cm; Reflux: 0 ms ?? Mid Calf: 0.1 cm; Reflux: 0 ms ?? Distal Calf: 0.1 cm; Reflux: 0 ms ? DUPLICATED MEDIAL GREAT SAPHENOUS VEIN: ?? Diameter: None imaged ?? Reflux: NA ? DUPLICATED LATERAL GREAT SAPHENOUS VEIN: ?? Diameter: 0.2 ?? Reflux: NA ? SMALL SAPHENOUS VEIN: ?? Saphenopopliteal Junction: 0.2 cm; Reflux: 0 ms ?? Proximal: 0.2 cm; Reflux: 0 ms ?? Distal: 0.1 cm; Reflux: 0 ms ? VEIN OF GIACOMINI: ?? Size: 0.2 ?? Reflux: NA ? PERFORATORS: ?? Location: None imaged ?? Size: NA ?? Reflux: NA ? VARICOSITIES: ?? Location: None Imaged ?? Size: NA ?? Reflux: NA ? US/US venous insuf bilat ?? IMPRESSION: ?? Right: No venous insufficiency. ? Left: No venous insufficiency. ? Electronically signed by: ??Jean Carlos Wiggins MD ??04/16/2024 08:20 AM ?? EST RP ? Dictated By: ?Jean Carlos Garcia MD ? Signed By: ?<Electronically signed by Jean Carlos Lopez MD in OV> ? 04/16/24 0820 ? DD/ 1101 ? TD/TT: 04/13/24 1133 ? Supervisor [employer]: ? Procedure Note Donotuseinterpreter, Image - 04/16/[address] [address] Ultrasound Report Signed Patient: Airam Lyle#: [id number] : 1970Acct:[id number] Age/Sex: 53 / FADM Date: 04/13/24 Loc: .US Attending Dr: Caitlin Brothers PA-C Ordering Physician: Caitlin Brothers PA-C Date of Service: 04/13/24 Procedure(s): US venous insuf bilat Accession Number(s): [id number] cc: Kadi Carvajal; Caitlin Brothers PA-C EXAMINATION: US LOWER EXTREMITY VENOUS (REFLUX EXAM), BILATERAL CLINICAL INFORMATION: Varices with inflammation, right lower extremity. COMPARISON: None. TECHNIQUE: Color flow triplex imaging and compression Doppler was performed to evaluate both the deep and the superficial systems bilaterally. To evaluate the superficial system, the examination was performed in the upright position. Color-flow Doppler ultrasound and compression ultrasound were utilized. In addition, maneuvers were utilized to demonstrate reflux. FINDINGS: 1. DEEP VENOUS ULTRASOUND OF THE RIGHT LOWER EXTREMITY: Common Femoral Vein: Compressible, normal respiratory variation and augmented flow. Femoral Vein: Compressible, normal color flow and augmentation. Popliteal Vein: Compressible, normal augmentation. Deep Reflux: There is no evidence of reflux in the deep system in either the common femoral vein, superficial femoral or the popliteal vein. There is no evidence of a Diane's cyst. 2. SUPERFICIAL ULTRASOUND WITH DOPPLER OF RIGHT LOWER EXTREMITY: GREAT SAPHENOUS VEIN: Saphenofemoral Junction: 0.6 cm; Reflux: 0 ms Proximal Thigh: 0.2 cm; Reflux: 0 ms Mid Thigh: 0.3 cm; Reflux: 0 ms Distal Thigh: 0.2 cm; Reflux: 0 ms At Knee: 0.3 cm; Reflux: 0 ms Proximal Calf: 0.1 cm; Reflux: 0 ms Mid Calf: 0.1 cm; Reflux: 0 ms Distal Calf: 0.1 cm; Reflux: 0 ms DUPLICATED MEDIAL GREAT SAPHENOUS VEIN: Diameter: None imaged Reflux: NA DUPLICATED LATERAL GREAT SAPHENOUS VEIN: Diameter: 0.3 Reflux: NA SMALL SAPHENOUS VEIN: Saphenopopliteal Junction: 0.2 cm; Reflux: 0 ms Proximal: 0.1 cm; Reflux: 0 ms Distal: 0.1 cm; Reflux: 0 ms VEIN OF GIACOMINI: Size: 0.1 Reflux: NA PERFORATORS: Location: None imaged Size: NA Reflux: NA VARICOSITIES: Location: None imaged. Size: NA Reflux: NA 3. DEEP VENOUS ULTRASOUND OF THE LEFT LOWER EXTREMITY: Common Femoral Vein: Compressible, normal respiratory variation and augmented flow. Femoral Vein: Compressible, normal color flow and augmentation. Popliteal Vein: Compressible, normal augmentation. Deep Reflux: There is no evidence of reflux in the deep system in either the common femoral vein, superficial femoral or the popliteal vein. There is no evidence of a Diane's cyst. 4. SUPERFICIAL ULTRASOUND WITH DOPPLER OF LEFT LOWER EXTREMITY: GREAT SAPHENOUS VEIN: Saphenofemoral Junction: 0.7 cm; Reflux: 0 ms Proximal Thigh: 0.3 cm; Reflux: 0 ms Mid Thigh: 0.2 cm; Reflux: 0 ms Distal Thigh: 0.2 cm; Reflux: 0 ms At Knee: 0.2 cm; Reflux: 0 ms Proximal Calf: 0.1 cm; Reflux: 0 ms Mid Calf: 0.1 cm; Reflux: 0 ms Distal Calf: 0.1 cm; Reflux: 0 ms DUPLICATED MEDIAL GREAT SAPHENOUS VEIN: Diameter: None imaged Reflux: NA DUPLICATED LATERAL GREAT SAPHENOUS VEIN: Diameter: 0.2 Reflux: NA SMALL SAPHENOUS VEIN: Saphenopopliteal Junction: 0.2 cm; Reflux: 0 ms Proximal: 0.2 cm; Reflux: 0 ms Distal: 0.1 cm; Reflux: 0 ms VEIN OF GIACOMINI: Size: 0.2 Reflux: NA PERFORATORS: Location: None imaged Size: NA Reflux: NA VARICOSITIES: Location: None Imaged Size: NA Reflux: NA US/US venous insuf bilat IMPRESSION: Right: No venous insufficiency. Left: No venous insufficiency. Electronically signed by: Jean Carlos Wiggins MD 04/16/2024 08:20 AM EST RP Dictated By: Jean Carlos Garcia MD Signed By: <Electronically signed by Jean Carlos Lopez MDin OV> 04/16/24 0820 DD/ 1101 TD/TT: 04/13/24 1133 Supervisor [employer]: [facility] External Provider CV VASC ULAR PROCEDURES Edited Result - Final [facility] [address] [place] [address] documented in this encounter Visit Diagnoses Not on filedocumented in this encounter Additional Health Concerns Assessment Noted Time PHQ-9 Depression Total Score: 23 024 9:07 AM EDT documented as of this encounter Care Teams Physical Security Specialist Relationship Specialty Start Date End Date Kadi Carvajal MD [address] [place] [address] PCP - General Family Medicine 06/03/23 documented as of this encounter
--- OUTSIDE RECORDS SUMMARY | 2024-04-24 13:57 | XMS_ITS | Encounter Summary ---
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 Not on file documented as of this encounter Plan of Treatment Upcoming Encounters Date Type Department Care Team (Late st Contact Info) Description 04/25/2024 3:00 PM EST Office Visit [address] [address] Kadi Carvajal MD [address] [place] [address] 05/03/2024 1:30 PM EST Clinical Support [address] [address] Leslie Stapleton RN documented as of this encounter Visit Diagnoses Diagnosis Anxiety Anxiety state, unspecified documented in this encounter Additional Health Concerns Assessment Noted Time PHQ-9 Depression Total Score: 23 024 9:07 AM EDT documented as of this encounter Care Teams Dispatch Officer Relationship Specialty Start Date End Date Kadi Carvajal MD [address] [place] [phone] PCP - General Family Medicine 06/03/23 documented as of this encounter
--- OUTSIDE RECORDS SUMMARY | 2024-04-24 13:57 | XMS_ITS | Encounter Summary ---
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 TC to patient, explained to patient above. Patient clarifying that she's trying to organize and straighten things out for her self. Encouraged her to call [facility] regarding her prescriptions as they havebeen at the pharmacy. Pt stated she is not getting alerted from [facility] when she has prescription readyand when she calls them they say they dont have it. Advised again, to call [facility], review her cell #, assure they have her setup for electronic alerts and be sure she's calling the correct pharmacy as she has [facility]. documented in this encounter Plan of Treatment Upcoming Encounters Date Type Department Care Team (Late st Contact Info) Description 04/25/2024 3:00 PM EST Office Visit [facility] [address] [place] [address] Kadi Carvajal MD [address] [place] [address] 05/03/2024 1:30 PM EST Clinical Support [facility] [address] [place] [address] Leslie Stapleton RN documented as of this encounter Visit Diagnoses Diagnosis Anxiety Anxiety state, unspecified documented in this encounter Additional Health Concerns Assessment Noted Time PHQ-9 Depression Total Score: 23 024 9:07 AM EDT documented as of this encounter Care Teams Soil Conservation Teacher Relationship Specialty Start Date End Date Kadi Carvajal MD [address] [place] [address] PCP - General Family Medicine 06/03/23 documented as of this encounter
--- OUTSIDE RECORDS SUMMARY | 2024-04-24 13:57 | XMS_ITS | Encounter Summary ---
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 Not on file documented as of this encounter Plan of Treatment Upcoming Encounters Date Type Department Care Team (Late st Contact Info) Description 04/25/2024 3:00 PM EST Office Visit [address] [address] Kadi Carvajal MD [address] [place] [address] 05/03/2024 1:30 PM EST Clinical Support [address] [address] Leslie Stapleton RN documented as of this encounter Visit Diagnoses Diagnosis Anxiety Anxiety state, unspecified documented in this encounter Additional Health Concerns Assessment Noted Time PHQ-9 Depression Total Score: 23 024 9:07 AM EDT documented as of this encounter Care Teams Windows Systems Administrator Relationship Specialty Start Date End Date Kdai Carvajal MD [address] [place] [address] PCP - General Family Medicine 06/03/23 documented as of this encounter
--- OUTSIDE RECORDS SUMMARY | 2024-04-24 13:57 | XMS_ITS | Encounter Summary ---
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
--- OUTSIDE RECORDS SUMMARY | 2024-04-24 13:57 | XMS_ITS | Clinical Summary ---
Author Organization [employer] Address 75 [facility] 7t [place] [address] Care Team Providers Care Road Service Locksmith Name Role Phone Kadi Carvajal MD Primary Care Provider [phone] Allergies Active Allergy Reactions Criticality Noted Date [...] 28 days. 56 tablet 025 2024 Active clonazePAM (KlonoPIN) 0.5 MG tabletIndication s:Anxiety Take 1 tablet (0.5 mg) by mouth every 12 (twelve) hours if needed for anxiety for up to 7 days. 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 agreement: signed 08/2023 Tier III (visit every [...] services have been re-started Labs done by walkin provider, all normal Discussed some preventative care, [...] Encounters Date Type Department Care Team Description 04/23/2024 3:30 PM EST Office Visit [place] [facility] OPTOMETRY 73 [place] [address] Mary Oveido, OD Glaucoma suspect of both eyes (Primary Dx); High myopia, bilateral; Elevated blood pressure reading 04/13/2024 Orders Only [facility] External Provider, [facility] 04/03/2024 Refill [facility] MEDICINE 230 [place] [address] Kadi Carvajal MD Anxiety 03/23/2024 Refill [facility] MEDICINE 230 [place] [address] Kadi Carvajal MD 03/23/2024 Refill [facility] [address] [place] [address] Selam Pickard MD Mild persistent asthma without complication 03/23/2024 Refill [facility] MEDICINE [address] [place] [address] Sherry Brady DO Anxiety 03/23/2024 Refill [facility] MEDICINE [address] [place] [address] Kadi Carvajal MD Attention deficit disorder (ADD) without hyperactivity 03/17/2024 Refill [facility] WALK-IN [address] [address] Selam Pickard MD Seasonal allergic rhinitis, unspecified trigger 03/06/2024 Refill [facility] MEDICINE [address] [place] [address] Kadi Carvajal MD Anxiety 02/14/2024 Refill [facility] MEDICINE [address] [place] [address] Kadi Carvajal MD Anxiety 02/14/2024 Refill [facility] MEDICINE [address] [place] [address] Kadi Carvajal MD Anxiety 02/08/2024 2:00 PM EST Office Visit [facility] MEDICINE [address] [place] [address] Kadi Carvajal MD Anxiety (Primary Dx); Encounter for screening mammogram for malignant neoplasm of breast; Screening for colon cancer; Lipoedema; Attention deficit disorder (ADD) without hyperactivity; Generalized anxiety disorder; care home prescription 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 02/08/2024 1:00 PM EST Office Visit [facility] ADULT DENTAL 230 [place] [address] Jovi Gray, PRASHANTH 02/08/2024 Travel 02/07/2024 Refill [facility] MEDICINE [address] [place] [address] Leslie Stapleton RN Anxiety from Last 3 Months Immunizations Name Administration Dates Next Due Influenza, IIV3, injectable 02/06/2020, 9 Pfizer Covid-19 Vaccine 12+ 03/12/2021,,07/11/2020 Tdap 03/30/2018 Family History Medical History Relation Name Comments Alcohol abuse Father Hypertension Father Stroke Father Bone cancer Maternal Grandmother Hypertension Mother Cataracts Paternal Grandfather Glaucoma Paternal Grandfather Stroke Paternal Grandmother Relation Name [...] 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 Not on file Not on file Last Filed Vital Signs Vital Sign Reading Time Taken Comments Blood Pressure 164/106 04/23/2024 3:53 PM EST Was told to call pcp to be evaluated in the next couple of weeks Pulse 90 02/08/2024 2:34 PM EST Temperature 36.7 ??C (98.1 ??F) 02/08/2024 2 :34 PM EST Respiratory Rate 18 02/08/2024 2:34 PM EST Oxygen Saturation 100% 02/08/2024 2:3 4 PM EST Inhaled Oxygen Concentration - - Weight 58.4 kg (128 lb 12.8 oz) 02/08/2024 2:34 PM EST Height 164 cm (5' 4.57 ) 02/08/2024 2:3 4 PM EST Body Mass Index 21.72 02/08/2024 2:34 PM EST Plan of Treatment Upcoming Encounters Date Type Department Care Team (Late st Contact Info) Description 04/25/2024 3:00 PM EST Office Visit [facility] MEDICINE [address] [place] [address] Kadi Carvajal MD [address] [place] [address] 05/03/2024 1:30 PM EST Clinical Support [facility] MEDICINE [address] [place] [address] Leslie Stapleton, RN Health Maintenance Due Date Last Done Comments CT Colonography 1972 Colonoscopy 1972 FIT 1972 FOBT 1972 HIV Screening 1972 Sigmoidoscopy 1972 Family Planning (PISQ) 10/06/1987 Hepatitis C Screening 1990 Hepatitis B Vaccines (1 of 3 - 19+ 3-dose series) 10/06/1991 Pneumococcal Vaccine: 50+ Years (1 of 2 - PCV) 10/06/1991 Mammogram 2012 Zoster Vaccines (1 of 2) 2022 Cervical Cancer Screening 11/24/2022 HPV/Cotest 11/24/2022 Pap Smear 11/24/2022 11/24/2017 COVID-19 Vaccine ( season) 2023 03/12/2021, 08/02/2020, 07/11/2020 Influenza Vaccine (#1) 2023 02/06/2020, 2018 Depression Monitoring (PHQ-9) 12/04/2023 06/03/2023, 06/03/2023 Alcohol/Substance Use Screening 06/02/2024 06/03/2023 Depression Screening 06/02/2024 06/03/2023, 06/03/19 24 SDOH Screening 06/02/2024 06/03/2023 Dental Oral Exam 06/18/2024 12/19/2023, , 03/23/2018 Dental Prophylaxis 06/18/2024 12/19/2023, 0 06/04/2020, 03/30/2018 Dental X-Ray: Bitewings 12/19/2024 12/19/19 24, 09/27/2023, 07/21/2023, Additional history exists Tobacco Screening 04/23/2025 04/23/2024 Dental X-Ray: Full Mouth 12/19/2026 12/19/2023, 05/2018 [...] Procedure Name Priority Date/Time Associated Diagnosis Comments VASC US LOWER EXTREMITY VENOUS INSUFFICIENCY BILATERAL Routine 04/13/2024 11:01 AM EST LAB COLOGUARD?? COLON CANCER SCREEN Routine 03/05/2024 [...] ESTABLISHED PATIENT Routine 12/19/2023 9:00 AM EDT PAP SMEAR Routine 11/24/2017 12:00 AM EDT from Last 3 Months or Most Recently Relevant to Health Maintenance Results * VASC US Lower Extremity Venous Insufficiency Bilateral (04/13/2024 11:01 AM EST) 04/13/2024 11:0 1 AM EST Narrative [facility] IMAGING - 04/16/2024 8:23 AM EST ? [facility] ?[address] ?[place] [address] ? Ultrasound Report ? Signed ? Patient: Valdo,Sara ?MR#: [id number] ? : 1970 ?Acct:[id number] ? Age/Sex: 53 / F ?ADM Date: 01/24/25 ? Loc: HO.US ? Attending Dr: Caitlin Brothers PA-C ? Ordering Physician: Caitlin Brothers PA-C ?? Date of Service: 04/13/24 ?? Procedure(s): US venous insuf bilat ?? Accession Number(s): [id number] ? cc: Kadi Carvajal; Caitlin Brothers PA-C [...] DD/ 1101 ? TD/TT: 04/13/24 1133 ? Senior Java Architect: ? Procedure Note Donyunter, Image - 04/16/2024 [place] [address] Ultrasound Report Signed Patient: Airam Lyle#: [id number] : 1970Acct:[id number] Age/Sex: 53 / FADM Date: 04/13/24 Loc: HO.US Attending Dr: Caitlin Brothers PA-C Ordering Physician: Caitlin Brothers PA-C Date of Service: 04/13/24 Procedure(s): US venous insuf bilat Accession Number(s): [id number] cc: Kadi Carvajal; Caitlin Brothers PA-C EXAMINATION: [...] Carlos Wiggins MD 04/16/2024 08:20 AM EST Dictated By: Jean Carlos Garcia MD Signed By: <Electronically signed by Jean Carlos Lopez MDin OV> 04/16/24 0820 DD/ 1101 TD/TT: 04/13/24 1133 Senior Java Architect: [facility] External Provider CV VASC ULAR PROCEDURES Edited Result - Final [facility] [address] [place] [phone] * Cologuard?? colon cancer screening (03/05/2024 12:30 PM EST) Cologuard Result Negative Negative 03/10/20 6:33 AM EST [facility] (CLIA #:[id number]) Comment: NEGATIVE TEST RESULT. A negative Cologuard [...] cancer. ??Following a negative Cologuard result, the [place] Cancer Society and U.S. Multi-Society Task Force screening guidelines recommend a Cologuard re-screening interval of 3 years. References: [place] [employer] Guideline for Colorectal Cancer Screening: https://www.cancer.org/cancer/qelry-qftkxj-zhoinh/fhghhuxsx-jcftcsivd-voeanvs/ac s-rec ommendations.html.; Natanael DK, Kareem CORONADO, Lyly ShahK, Colorectal Cancer Screening: Recommendations for Physicians and Patients from the U.S. Multi-Society Task Force on Colorectal Cancer Screening , Am J Gastroenterology 2017; 112:3456-8552. TEST DESCRIPTION: Composite algorithmic analysis of stool [...] Roman et al, N Engl J Med 2014;370(14):0410-7432.) Cologuard may produce a false negative or false positive result (no colorectal cancer or precancerous polyp present at colonoscopy follow up). A negative Cologuard test result does not guarantee the absence of CRC or advanced adenoma (pre-cancer). The current Cologuard screening interval is every 3 years. ([place] Cancer Society and U.S. Multi-Society Task Force). Cologuard performance data in a 10,000 patient pivotal study using colonoscopy as the reference method can be accessed at the following location: www.Giritech.Note/results. Additional description of the Cologuard test process, warnings and precautions can be found at www.cologuard.com. Stool specimen (specimen) 03/05/2024 12:30 PM EST 03/06/2024 12:44 PM EST Kadi Carvajal MD LAB MOLECULAR DIAGNOSTICS [facility] ROBLEDO Final Result [facility] (CLIA #:[id number]) [place] [address], * POCT CHELY-14 Urine Drug Screen (02/08/2024 3:16 PM EST) THC Positive Amphetamine Screen, Urine Positive Benzodiazepines Screen, Urine Positive Urine Urine specimen obtained by clean catch procedure / Unknown 02/08/2024 3:16 PM EST Leslie Meza RN - 02/08/2024 3:16 PM EST UTOX cup Lot#[id number] Exp. 11/07/25 Internal Pass Control Kadi Carvajal MD POINT OF CARE TEST ENTER/EDIT ORDERABLES Final Result * Pap Smear (11/24/2017 12:00 AM EDT) Swab Historical Provider LAB CYTOLOGY ORDERABLES F inal Result from Last 3 Months or Most Recently Relevant to Health Maintenance Insurance [facility] [place] C[place] Member Subscriber Plan / Payer (Ef fective 2022-Present) Name:Sara Lyle Relation to Subscriber:Self Name:Sara Lyle Payer ID:Not on file Group ID:Not on file Type:Medicaid Address: [address] DENTAL-[facility] MEDICAID STAND ADULT DENTAL-[facility] MEDICAID STAND ADULT [facility] C[address] Care Teams Road Service Locksmith Relationship Specialty Start Date End Date Kadi Carvajal MD 230 [place] [address] PCP - General Family Medicine 06/03/23
--- OUTSIDE RECORDS SUMMARY | 2024-04-24 13:57 | XMS_ITS | Encounter Summary ---
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 Not on file documented as of this encounter Plan of Treatment Upcoming Encounters Date Type Department Care Team (Late st Contact Info) Description 04/25/2024 3:00 PM EST Office Visit [address] [address] Kadi Carvajal MD [address] [place] [address] 05/03/2024 1:30 PM EST Clinical Support [address] [address] Leslie Stapleton, RN documented as of this encounter Visit Diagnoses Diagnosis Attention deficit disorder (ADD) without hyperactivity documented in this encounter Additional Health Concerns Assessment Noted Time PHQ-9 Depression Total Score: 23 024 9:07 AM EDT documented as of this encounter Care Teams Boat Pilot Relationship Specialty Start Date End Date Kadi Carvajal MD [address] [place] [address] PCP - General Family Medicine 06/03/23 documented as of this encounter
--- OUTSIDE RECORDS SUMMARY | 2024-04-24 13:57 | XMS_ITS | Encounter Summary ---
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 Not on file documented as of this encounter Plan of Treatment Upcoming Encounters Date Type Department Care Team (Late st Contact Info) Description 04/25/2024 3:00 PM EST Office Visit [address] [address] Kadi Carvajal MD [address] [place] [address] 05/03/2024 1:30 PM EST Clinical Support [address] [address] Leslie Stapleton RN documented as of this encounter Visit Diagnoses Diagnosis Attention deficit disorder (ADD) without hyperactivity documented in this encounter Care Teams Leather Roller Relationship Specialty Start Date End Date Kadi Carvajal MD [address] [place] [address] PCP - General Family Medicine 06/03/23 documented as of this encounter
--- OUTSIDE RECORDS SUMMARY | 2024-04-24 13:57 | XMS_ITS | Encounter Summary ---
Author Organization [employer] Address 75 [facility] 7t [place] [address] Care Team Providers Care Customer Relations Coordinator Name Role Phone Kadi Carvajal MD Primary Care Provider [phone] Reason for Visit * Reason Onset Date Comments Med Refill 06/01/2023 Encounter Details Date Type Department Care Team (Late st Contact Info) Description 06/01/2023 Refill [facility] MEDICAL 73 [place] [address] [facility] 70 [place] [address] Attention deficit disorder (ADD) without hyperactivity Social [...] 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
--- OUTSIDE RECORDS SUMMARY | 2024-04-24 13:57 | XMS_ITS | Encounter Summary ---
Author Organization [employer] Address [address] [facility] [address] 7t [place] [address] Care Team Providers Care Finishing Room Supervisor Name Role Phone Kadi Carvajal MD Primary Care Provider [phone] Reason for Visit * Reason Onset Date Comments Med Refill 09/02/2023 Encounter Details Date Type Department Care Team ([facility] st Contact Info) Description 09/02/2023 Refill [facility] WALK[facility]IN CENTER 230 [place] [address] Selam Pickard MD [address] [place] [address] Mild persistent asthma without complication Social History [...] 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 Not on file documented as of this encounter Plan of Treatment Upcoming Encounters Date Type Department Care Team (Late st Contact Info) Description 04/25/2024 3:00 PM EST Office Visit [facility] MEDICINE [address] [place] [address] Kadi Carvajal MD [address] [place] [address] 05/03/2024 1:30 PM EST Clinical Support [address] [address] Leslie Stapleton, RN documented as of this encounter Visit Diagnoses Diagnosis Mild persistent asthma without complication documented in this encounter Additional Health Concerns Assessment Noted Time PHQ-9 Depression Total Score: 23 024 9:07 AM EDT documented as of this encounter Care Teams Finishing Room Supervisor Relationship Specialty Start Date End Date Kadi Carvajal MD [address] [place] [address] PCP - General Family Medicine 06/03/23 documented as of this encounter
--- OUTSIDE RECORDS SUMMARY | 2024-04-24 13:57 | XMS_ITS | Encounter Summary ---
Author Organization [employer] Address 75 [facility] 7t [place] [address] Care Team Providers Care Recreation Professor Name Role Phone Kadi Carvajal MD Primary Care Provider [phone] Reason for Visit * Reason Onset Date Comments Med Refill 10/17/2023 Encounter Details Date Type Department Care Team ([facility] st Contact Info) Description 10/17/2023 Refill [facility] MEDICINE 230 [place], [place] [phone] Kadi Carvajal MD 230 [place], [place] [phone] Menopausal symptoms Social History Tobacco Use Types [...] 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 Not on file documented as of this encounter Plan of Treatment Upcoming Encounters Date Type Department Care Team (Late st Contact Info) Description 04/25/2024 3:00 PM EST Office Visit [address] [address] Kadi Carvajal MD [address] [place] [address] 05/03/2024 1:30 PM EST Clinical Support [address] [address] Leslie Stapleton, RN documented as of this encounter Visit Diagnoses Diagnosis Menopausal symptoms Symptomatic menopausal or female climacteric states documented in this encounter Additional Health Concerns Assessment Noted Time PHQ-9 Depression Total Score: 23 024 9:07 AM EDT documented as of this encounter Care Teams Recreation Professor Relationship Specialty Start Date End Date Kadi Carvajal MD [address] [place] [address] PCP - General Family Medicine 06/03/23 documented as of this encounter
--- OUTSIDE RECORDS SUMMARY | 2024-04-24 13:57 | XMS_ITS | Encounter Summary ---
Author Organization [employer] Address [address] [place] [address] 7t [place] [address] Care Team Providers Care Oncology Radiation Physician Name Role Phone Wanda Fragoso JOSÉ MIGUEL Primary Care Provider [phone] Kadi Carvajal MD Primary Care Provider [phone] Reason for Visit * Reason Comments Med Refill Encounter Details Date Type Department Care Team (Late st Contact Info) Description 04/22/2022 Refill [facility] MEDICAL [address] [place] [address] Driss Mar NP [address] [place] [address] Mild persistent asthma without complication (Primary Dx); [...] Description 04/25/2024 3:00 PM EST Office Visit [address] [address] Kadi Carvajal MD [address] [place] [address] 05/03/2024 1:30 PM EST Clinical Support [address] [address] Leslie Stapleton RN documented as of this encounter Visit Diagnoses Diagnosis Mild persistent asthma without complication- Primary Mild intermittent asthma, uncomplicated documented in this encounter Care Teams Oncology Radiation Physician Relationship Specialty Start Date End Date [place], [place], [facility] 70 [place] [address] PCP - General Family Medicine 03/03/22 10/19/22 Kadi Carvajal MD [address] [place] [address] PCP - General Family Medicine 06/03/23 documented as of this encounter
== END 2024-04-24 14:18 | disposition home or self-care (01) ==
PROVIDERS: PCP General Practice; Visit Provider Physician Assistant Surgical
DX: I89.0 Lymphedema, not elsewhere classified (principal)
CPT/HCPCS: 99214

== ENCOUNTER → 2024-04-24 13:49 | Outpatient (BNVA) | payer MEDICAID, SELFPAY | PROVIDERS: PCP General Practice; Visit Provider Physician Assistant Surgical | DX: I89.0 Lymphedema, not elsewhere classified (principal) | CPT/HCPCS: 99212 ==

== ENCOUNTER → 2024-04-25 14:09 | Outpatient (BNVA) | payer MEDICAID, SELFPAY | PROVIDERS: PCP General Practice; Visit Provider Physician Assistant Surgical | DX: I89.0 Lymphedema, not elsewhere classified (principal) | CPT/HCPCS: 99212 ==

== ENCOUNTER 2025-03-18 16:22 | Outpatient (REF) | payer MEDICAID, SELFPAY ==
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
--- OUTSIDE RECORDS SUMMARY | 2025-03-18 17:58 | XMS_ITS | Encounter Summary ---
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 file Not on file documented as of this encounter Miscellaneous Notes * Telephone Encounter - Emma Gene - 06/02/2023 11:57 AM EDT Clonazepam 0.5 Mg Tablet Masspat Last fill Date:01/07/23 Last OV:04/19/23 Next OV:NA Last UTOX:12/03/21 CSA Date:NA DNF Date:02/04/23 documented in this encounter Plan of Treatment Upcoming Encounters Date Type Department Care Team (Late st Contact Info) Description 04/17/2025 9:15 AM EST Telemedicine [facility] MEDICINE [address] [place] [address] Kadi Carvajal MD [address] [place] [phone] 06/05/2025 2:00 PM EDT Clinical Support [address] [address] [place] Stapleton RN documented as of this encounter Visit Diagnoses Diagnosis Anxiety Anxiety state, unspecified documented in this encounter Care Teams Model Maker Plaster Relationship Specialty Start Date End Date Kadi Carvajal MD [address] [place] [phone] PCP - General Family Medicine 06/03/23 documented as of this encounter
--- OUTSIDE RECORDS SUMMARY | 2025-03-18 17:58 | XMS_ITS | Encounter Summary ---
Author Organization [employer] Address [address] [place] [address] 7 [place] [address] Care Team Providers Care Photographic Specialist Name Role Phone [facility] Wanda VALDEZ Primary Care Provider [phone] Kadi Carvajal MD Primary Care Provider [phone] Encounter Details Date Type Department Care Team [...] Info) Description 04/17/2025 9:15 AM EST Telemedicine [facility] MEDICINE [address] [place] [address] Kadi Carvajal MD [address] [place] [phone] 06/05/2025 2:00 PM EDT Clinical Support [facility] MEDICINE [address] [place] [address] [place] Stapleton RN documented as of this encounter Visit Diagnoses Not on filedocumented in this encounter Care Teams Photographic Specialist Relationship Specialty Start Date End Date [facility] [address] [place] [address] PCP - General Family Medicine 03/03/22 10/19/22 Kadi Carvajal MD [address] [place] [address] PCP - General Family Medicine 06/03/23 documented as of this encounter
--- OUTSIDE RECORDS SUMMARY | 2025-03-18 17:58 | XMS_ITS | Encounter Summary ---
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 [...] Info) Description 04/17/2025 9:15 AM EST Telemedicine [facility] MEDICINE [address] [place] [address] Kadi Carvajal MD [address] [place] [phone] 06/05/2025 2:00 PM EDT Clinical Support [address] [address] [place] Stapleton RN documented as of this encounter Visit Diagnoses Diagnosis Attention deficit disorder (ADD) without hyperactivity documented in this encounter Care Teams Biochemical Development Engineer Relationship Specialty Start Date End Date Kadi Carvajal MD [address] [place] [address] PCP - General Family Medicine 06/03/23 documented as of this encounter
--- OUTSIDE RECORDS SUMMARY | 2025-03-18 17:58 | XMS_ITS | Encounter Summary ---
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
--- OUTSIDE RECORDS SUMMARY | 2025-03-18 17:58 | XMS_ITS | Encounter Summary ---
Author Organization [employer] Address [address] [place] [address] 7t [place] [address] Care Team Providers Care Tin Plater Name Role Phone [facility] Wanda JOSÉ MIGUEL Primary Care Provider [phone] Kadi Carvajal MD Primary Care Provider [phone] Encounter Details Date Type Department Care Team [...] Info) Description 04/17/2025 9:15 AM EST Telemedicine [facility] MEDICINE [address] [place] [address] Kadi Carvajal MD [address] [place] [address] 06/05/2025 2:00 PM EDT Clinical Support [facility] MEDICINE [address] [place] [phone] [place] Stapleton RN documented as of this encounter Visit Diagnoses Not on filedocumented in this encounter Care Teams Tin Plater Relationship Specialty Start Date End Date [facility] [address] [place] [address] PCP - General Family Medicine 03/03/22 10/19/22 Kadi Carvajal MD [address] [place] [phone] PCP - General Family Medicine 06/03/23 documented as of this encounter
--- OUTSIDE RECORDS SUMMARY | 2025-03-18 17:58 | XMS_ITS | Encounter Summary ---
Author Organization [employer] Address [address] [facility] 7t [place] [address] Care Team Providers Care Events Traffic Controller Name Role Phone Kadi Carvajal MD Primary Care Provider [phone] Reason for Visit * Reason Onset Date Comments Med Refill 06/01/2023 Encounter Details Date Type Department Care Team (Late st Contact Info) Description 06/01/2023 Refill [facility] MEDICAL [address] [place] [address] [facility] [address] [place] [address] Attention deficit disorder (ADD) without hyperactivity Social [...] 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 Not on file documented as of this encounter Plan of Treatment Upcoming Encounters Date Type Department Care Team (Late st Contact Info) Description 04/17/2025 9:15 AM EST Telemedicine [address] [address] Kadi Carvajal MD [address] [place] [phone] 06/05/2025 2:00 PM EDT Clinical Support [address] [address] [place] Stapleton RN documented as of this encounter Visit Diagnoses Diagnosis Attention deficit disorder (ADD) without hyperactivity documented in this encounter Care Teams Events Traffic Controller Relationship Specialty Start Date End Date Kadi Carvajal MD [address] [place] [address] PCP - General Family Medicine 06/03/23 documented as of this encounter
--- OUTSIDE RECORDS SUMMARY | 2025-03-18 17:58 | XMS_ITS | Encounter Summary ---
Author Organization [employer] Address [address] [place] [address] 7t [place] [address] Care Team Providers Care Chief Lock Tender Operator Name Role Phone Wanda Fragoso JOSÉ MIGUEL Primary Care Provider [phone] Kadi Carvajal MD Primary Care Provider [phone] Reason for Visit * Reason Comments Med Refill Encounter Details Date Type Department Care Team (Late st Contact Info) Description 04/22/2022 Refill [facility] MEDICAL [address] [place] [address] Driss Mar, SOPHIA [address] [place] [address] Mild persistent asthma without complication (Primary Dx); [...] Info) Description 04/17/2025 9:15 AM EST Telemedicine [address] [address] Kadi Carvajal MD [address] [place] [phone] 06/05/2025 2:00 PM EDT Clinical Support [address] [address] [place] Stapleton, JUAN documented as of this encounter Visit Diagnoses Diagnosis Mild persistent asthma without complication- Primary Mild intermittent asthma, uncomplicated documented in this encounter Care Teams Chief Lock Tender Operator Relationship Specialty Start Date End Date [place], [place], [facility] [address] [place] [address] PCP - General Family Medicine 03/03/22 10/19/22 Kadi Carvajal MD [address] [place] [address] PCP - General Family Medicine 06/03/23 documented as of this encounter
--- OUTSIDE RECORDS SUMMARY | 2025-03-18 17:58 | XMS_ITS | Clinical Summary ---
Author Organization [employer] Address [address] [facility] 7t [place] [address] Care Team Providers Care Animal Taxonomist Name Role Phone Kadi Carvajal MD Primary Care Provider [phone] Allergies Active Allergy Reactions Criticality Noted Date Comments Sulfa Antibiotics 03/03/2022 Other reaction(s): Hives Medications * This document contains information received from the source organization and may not represent a complete record from that organization. fluticasone (Flonase) 50 MCG/ACT nasal sprayIndications:S easonal allergic rhinitis, unspecified trigger USE 1 SPRAY IN EACH NOSTRIL EVERY DAY 32 mL 11 4 Active acetaminophen (Tylenol 8 Hour) 650 MG ER tabletIndications: Dental abscess,Open fracture of tooth, sequela Take 1 tablet (650 mg) by mouth every 8 (eight) hours if needed for mild pain. Do not crush, chew, or split. 20 tablet 5 Active FLUoxetine (PROzac) 20 MG capsuleIndications :Anxiety Take 1 capsule (20 mg) by mouth Once per day. 90 capsule 3 5 09/06/19 26 Active amphetamine-dextro amphetamine XR (Adderall XR) 30 MG 24 hr capsuleIndications :Attention deficit disorder (ADD) without hyperactivity TAKE 1 CAPSULE BY MOUTH EVERY MORNING. TAKE ALONG WITH ADDERALL XR 10MG TABLET (TO EQUAL 40MG DOSE) 60 capsule 5 Active amphetamine-dextro amphetamine XR (Adderall XR) 10 MG 24 hr capsuleIndications :Attention deficit disorder (ADD) without hyperactivity TAKE 1 CAPSULE BY MOUTH EVERY DAY. TAKE ALONG WITH ADDERALL XR 30MG (TO EQUAL 40MG DOSE. DO NOT CRUSH OR CHEW. 60 capsule 5 Active norelgestromin-eth inyl estradiol (Ortho-Evra) 150-35 MCG/24HR Apply 1 patch each week for 3 weeks, then remove for 1 week. 12 patch 3 5 01/26/20 26 Active clonazePAM (KlonoPIN) 0.5 MG tabletIndications: Anxiety Take 1 tablet (0.5 mg) by mouth every 12 (twelve) hours if needed for anxiety. Do not start before February 17, 2025. 56 tablet 5 Active albuterol (Ventolin HFA) 108 (90 Base) MCG/ACT inhaler Inhale 2 puffs every 6 (six) hours if needed for wheezing. INHALE 2 PUFFS EVERY 6 HOURS IF NEEDED FOR WHEEZING. 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 referral for phone or video visits for psychotherapy MRI brain ordered urgently Refer to neurologist as needed, based on MRI results Trauma and stressor-related disorder 09/18/2024 Grief counseling 09/18/2024 Open fracture of tooth 08/14/2024 Elevated blood pressure read ing in office without diagnosis of hypertension 07/30/2024 Assessment & Plan (07/30/2024 7:43 PM EDT): Patient with elevated BP at home and in clinic. Could be alcohol use, anxiety, HRT - will hold HRT for one week, stop patches - measure BP daily, log given - limit alcohol to 1-2 drinks daily max - f.u with me in one week via telephone to discuss BP numbers and next steps Perimenopause 07/30/2024 Overview (07/30/2024): Managed with Ortho Evra, these patches were placed on hold due to elevated blood pressure 07/27/24 Lipoedema 02/12/2024 prison prescription 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 2023 Overview (02/12/2024): Dx: Generalized anxiety disorder, ADHD Rx: Klonopin 0.5mg BID, Adderall 30mg XR in the morning, 10mg XR in the afternoon Last STEELSCOPE OPERATOR agreement: signed 08/2023 Tier III (visit every 4-6 months) Additional considerations: Timeline: Assessment & Plan (02/12/2024 1:36 PM EST): Reviewed being seen every 4-6 months for utox and pill counts, importance of taking her meds as prescribed, and her being treated by her own prescriber History of tooth extraction 10/28/2023 Severe dental caries 10/24/2023 Dental abscess 10/24/2023 Encounter to establish care with new doctor 05/19 Assessment & Plan (06/05/2023 6:42 PM EDT): Discussed psych history, plan to restart medications and monitor in six weeks Therapy services have been re-started Labs done by walkin provider, all normal Discussed some preventative care, will continue to address at subsequent visits Eating disorder 05/28/2022 Adnexal mass 02/22/2022 Generalized anxiety disorder 02/22/2022 Attention deficit disorder (ADD) without hyperac tivity 02/22/2022 Environmental and seasonal allergies 02/22/2022 Metrorrhagia 02/22/2022 Mild persistent asthma without complication 07/2021 Moderate episode of recurren t major depressive disorder (CMS/HCC) 02/22/2022 Resolved Problems Problem Noted Date Diagnosed Date Resolved Date Anxiety 02/12/2024 07/30/2024 Episode of recurrent major d epressive disorder 05/30/2023 07/30/2024 Lipid metabolism abnormality 02/22/2022 05/28/2022 Seasonal allergic rhinitis 02/22/2022 0 07/30/2024 Urinary incontinence 02/22/2022 024 Encounters Date Type Department Care Team Description 03/18/2025 1:30 PM EST Clinical Support [facility] [place] [address] Leslie Stapleton RN termite treater prescription 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 (Primary Dx); Generalized anxiety disorder 03/18/2025 Refill [facility] [address] [facility] [place] [address] Leslie Stapleton RN Anxiety 03/18/2025 Travel 03/12/2025 11:15 AM EST Telemedicine [facility] [address] [facility] [place] [address] Kadi Carvajal MD Transient global amnesia (Primary Dx); Screening mammogram for breast cancer; Generalized anxiety disorder; Trauma and stressor-related disorder 03/12/2025 Travel 03/11/2025 Telephone [facility] [address] [facility] [place] [address] Kadi Carvajal MD Chart prep 03/07/2025 Telephone [facility] [address] [place] [phone] Kadi Carvajal MD Appointment Request 02/20/2025 Refill [facility] [address] [place] [address] Kadi Carvajal MD Anxiety 02/11/2025 Refill [facility] [address] [place] [address] Kadi Carvajal MD Anxiety 02/11/2025 Refill [facility] [address] [place] [address] Kadi Carvajal MD 02/11/2025 Refill [facility] [address] [place] [address] Kadi Carvajal MD Anxiety 02/08/2025 Telephone [facility] [address] [place] [phone] Kadi Carvajal MD pt request appt 01/25/2025 Orders Only [facility] [address] [place] [address] Kadi Carvajal MD 01/24/2025 Refill [facility] [address] [place] [phone] Kadi Carvajal MD Attention deficit disorder (ADD) without hyperactivity 01/16/2025 Refill [facility] [address] [place] [address] Kadi Carvajal MD Anxiety 01/11/2025 Refill [facility] [address] [place] [address] Kadi Carvajal MD 01/09/2025 Refill [facility] [address] [place] [address] Kadi Carvajal MD Anxiety; Attention deficit disorder (ADD) without hyperactivity 12/28/2024 Travel 12/27/2024 Telephone [facility] [address] [place] [address] Kadi Carvajal MD Chart Prep 12/18/2024 Refill [facility] [address] [place] [address] Lisa Artis MD Anxiety from Last 3 Months Immunizations Immunization Administration Dates Next Due Influenza, IIV3, injectable 02/06/2020, 9 Influenza, Recombinant, inje ctable, preservative free 01/05/2025 Pfizer Covid-19 Vaccine 12+ 03/12/2021,,07/11/2020 Tdap 01/05/2025,03/30/2018 Family History Medical History Relation Name Comments [...] the past 12 months, has t he [employer], [employer], oil or water [employer] threatened to shut off services in your [...] 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 file Not on file Last Filed Vital Signs Vital Sign Reading Time Taken Comments Blood Pressure 126/74 08/14/2024 1:16 PM EDT Pulse 64 07/27/2024 1:26 PM EDT Temperature 35.2 C (95.3 F) 07/27/2024 1:26 PM EDT Respiratory Rate 18 07/04/2024 11:16 AM EDT Oxygen Saturation 100% 07/27/2024 1:26 PM EDT Inhaled Oxygen Concentration - - Weight 58.6 kg (129 lb 4 oz) 07/27/2024 1:26 PM EDT Height 164 cm (5' 4.57 ) 07/27/2024 1:26 PM EDT Body Mass Index 21.8 07/27/2024 1:26 PM EDT Plan of Treatment Upcoming Encounters Date Type Department Care Team (Late st Contact Info) Description 04/17/2025 9:15 AM EST Telemedicine [facility] [address] [place] [phone] Kadi Carvajal MD [address] [place] [phone] 06/05/2025 2:00 PM EDT Clinical Support [facility] [address] [place] [phone] Leslie Stapleton, RN Health Maintenance Due Date Last Done Comments CT Colonography 1972 Colonoscopy 1972 FIT 1972 HIV Screening 1972 Sigmoidoscopy 1972 Disability Screening 1972 Family Planning (PISQ) 10/06/1987 Hepatitis C Screening 1990 Hepatitis B Vaccines (1 of 3 - 19+ 3-dose series) 10/06/1991 Pneumococcal Vaccine: 50+ Years (1 of 2 - PCV) 10/06/1991 Mammogram 2012 RSV Patients and Patients Aged 60 years or older (1 - Risk 50-74 years 1-dose series) 2022 Zoster Vaccines (1 of 2) 2022 Cervical Cancer Screening 11/24/2022 HPV/Cotest 11/24/2022 Pap Smear 11/24/2022 11/24/2017 Dental Oral Exam 06/18/2024 12/19/2023, , 03/23/2018 Dental Prophylaxis 06/18/2024 12/19/2023, 0 06/04/2020, 03/30/2018 COVID-19 Vaccine ( season) 2024 03/12/2021, 08/02/2020, 07/11/2020 FOBT 03/05/2025 03/05/2024 Dental X-Ray: Bitewings 07/05/2025 07/05/19, 05/04/2024, 12/19/2023, Additional history exists Depression Screening 07/27/2025 07/27/2024, 07/28/19 SDOH Screening 07/27/2025 07/27/2024 Alcohol/Substance Use Screening 07/30/2025 07/30/2024 Tobacco Screening 03/12/2026 03/12/2025 Dental X-Ray: Full Mouth 12/19/2026 12/19/2023, 05/2018 Colorectal Cancer Screening 03/05/2027 FIT DNA/Cologuard 03/05/2027 03/05/2024 DTaP/Tdap/Td Vaccines (3 - Td or Tdap) 01/05/2035 01/05/2025, 03/30/2018 Influenza Vaccine Completed 01/05/2025, , 03/30/2018 HIB Vaccines Aged Out No longer eligi [...] patient's age to complete this topic Meningococcal B Vaccine Aged Out No l onger eligible based on patient's age to complete [...] Procedure Name Priority Date/Time Associated Diagnosis Comments BITEWING - SINGLE RADIOGRAPHIC IMAGE Routine 07/04/2024 1:00 PM EDT Recurrent dental caries extending into dentin Dental root caries LAB COLOGUARD COLON CANCER SCREEN Routine 03/05/2024 12:30 PM EST Screening for colon cancer PROPHYLAXIS - ADULT Routine 12/19/2023 9 :00 AM EDT Dental plaque Dental calculus INTRAORAL - COMPLETE SERIES OF RADIOGRAPHIC IMAGES Routine 12/19/2023 9:00 AM EDT PERIODIC ORAL EVALUATION - ESTABLISHED PATIENT Routine 12/19/2023 9:00 AM EDT PAP SMEAR Routine 11/24/2017 12:00 AM EDT from Last 3 Months or Most Recently Relevant to Health Maintenance Results * Cologuard?? colon cancer screening (03/05/2024 12:30 PM EST) Pathologist [facility] Cologuard Result Negative Negative 03/10/20 6:33 AM EST [facility] (CLIA #:[id number]) Comment: NEGATIVE TEST RESULT. A negative Cologuard result indicates a low likelihood that a colorectal cancer (CRC) or advanced adenoma (adenomatous polyps with more advanced pre-malignant features) is present. The chance that a person with a negative Cologuard test has a colorectal cancer is less than 1 in 1500 (negative predictive value >99.9%) or has an advanced adenoma is less than 5.3% (negative predictive value 94.7%). These data are based on a prospective cross-sectional study of 10,000 individuals at average risk for colorectal cancer who were screened with both Cologuard and colonoscopy. (Josi England. et al, N Engl J Med 2014;370(14):6175-3176) The normal value (reference range) for this assay is negative. COLOGUARD RE-SCREENING RECOMMENDATION: Periodic colorectal cancer screening is an important part of preventive healthcare for asymptomatic individuals at average risk for colorectal cancer. Following a negative Cologuard result, the [place] [employer] Society and U.S. Multi-Society Task Force screening guidelines recommend a Cologuard re-screening interval of 3 years. References: [place] [employer] Guideline for Colorectal Cancer Screening: https://www.cancer.org/cancer/prehg-tbizyj-bbdyfb/riteexecq-hntrbdpop-mlzcekl/ac s-rec ommendations.html.; Natanael WELCH, Kareem CORONADO, Lyly ShahK, Colorectal Cancer Screening: Recommendations for Physicians and Patients from the U.S. Multi-Society Task Force on Colorectal Cancer Screening , Am J Gastroenterology 2017; 112:3677-0529. TEST DESCRIPTION: Composite algorithmic analysis of stool DNA-biomarkers with hemoglobin immunoassay. Quantitative values of individual biomarkers are not [...] Roman et al, N Engl J Med 2014;370(14):7978-1325.) Cologuard may produce a false negative or false positive result (no colorectal cancer or precancerous polyp present at colonoscopy follow up). A negative Cologuard test result does not guarantee the absence of CRC or advanced adenoma (pre-cancer). The current Cologuard screening interval is every 3 years. ([place] [employer] Society and U.S. Multi-Society Task Force). Cologuard performance data in a 10,000 patient pivotal study using colonoscopy as the reference method can be accessed at the following location: www.[employer].Arzeda/results. Additional description of the Cologuard test process, warnings and precautions can be found at www.[employer].com. Stool specimen (specimen) 03/05/2024 12:30 PM EST 03/06/2024 12:44 PM EST Kadi Carvajal MD LAB MOLECULAR DIAGNOSTICS [facility] Final Result [facility] (CLIA #:[id number]) [place] [address], * Pap Smear (11/24/2017 12:00 AM EDT) Swab Historical Provider LAB CYTOLOGY ORDERABLES F inal Result from Last 3 Months or Most Recently Relevant to Health Maintenance Insurance [facility] MEDICAID STAND ADULT [facility] MEDICAID STAND ADULT [facility] C3 Care Teams Animal Taxonomist Relationship Specialty Start Date End Date Kadi Carvajal MD [address] [place] [address] PCP - General Family Medicine 06/03/23
--- OUTSIDE RECORDS SUMMARY | 2025-03-18 17:58 | XMS_ITS | Encounter Summary ---
Author Organization [employer] Address [address] [facility] [address] [place] [address] Care Team Providers Care Organ Pipe Finisher Name Role Phone Kadi Carvajal MD Primary Care Provider [phone] Reason for Visit * Reason Onset Date Comments Med Refill 06/01/2023 Encounter Details Date Type Department Care Team ([facility] st Contact Info) Description 06/01/2023 Refill [facility] [address] [place] [address] Selam Pickard MD [address] [place] [address] Anxiety Social History Tobacco Use Types Packs/Day [...] 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 Not on file documented as of this encounter Plan of Treatment Upcoming Encounters Date Type Department Care Team (Late st Contact Info) Description 04/17/2025 9:15 AM EST Telemedicine [address] [address] Kadi Carvajal MD [address] [place] [phone] 06/05/2025 2:00 PM EDT Clinical Support [address] [address] Leslie Stapleton RN documented as of this encounter Visit Diagnoses Diagnosis Anxiety Anxiety state, unspecified documented in this encounter Care Teams Organ Pipe Finisher Relationship Specialty Start Date End Date Kadi Carvajal MD [address] [place] [phone] PCP - General Family Medicine 06/03/23 documented as of this encounter
--- OUTSIDE RECORDS SUMMARY | 2025-03-18 17:58 | XMS_ITS | Encounter Summary ---
Author Organization [employer] Address [address] 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 Not on file documented as of this encounter Plan of Treatment Upcoming Encounters Date Type Department Care Team (Late st Contact Info) Description 04/17/2025 9:15 AM EST Telemedicine [address] [address] Kadi Carvajal MD [address] [place] [address] 06/05/2025 2:00 PM EDT Clinical Support [address] [address] Leslie Stapleton, RN documented as of this encounter Visit Diagnoses Not on filedocumented in this encounter Additional Health Concerns Assessment Noted Time PHQ-9 Depression Total Score: 23 024 9:07 AM EDT documented as of this encounter Care Teams Straight Slicing Machine Operator Relationship Specialty Start Date End Date Kadi Carvajal MD [address] [place] [phone] PCP - General Family Medicine 06/03/23 documented as of this encounter
--- OUTSIDE RECORDS SUMMARY | 2025-03-18 17:58 | XMS_ITS | Encounter Summary ---
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 Not on file documented as of this encounter Miscellaneous Notes * Telephone Encounter - Kadi Carvajal MD - 07/08/2023 8:10 AM EDT Already sent in 30 and 10mg XR 07/06/23 documented in this encounter Plan of Treatment Upcoming Encounters Date Type Department Care Team (Late st Contact Info) Description 04/17/2025 9:15 AM EST Telemedicine [facility] [address] [place] [phone] Kadi Carvajal MD [address] [place] [phone] 06/05/2025 2:00 PM EDT Clinical Support [facility] [address] [place] [phone] Leslie Stapleton RN documented as of this encounter Visit Diagnoses Diagnosis Attention deficit disorder (ADD) without hyperactivity documented in this encounter Additional Health Concerns Assessment Noted Time PHQ-9 Depression Total Score: 23 024 9:07 AM EDT documented as of this encounter Care Teams Front Maker Relationship Specialty Start Date End Date Kadi Carvajal MD [address] [place] [phone] PCP - General Family Medicine 06/03/23 documented as of this encounter
--- OUTSIDE RECORDS SUMMARY | 2025-03-18 17:58 | XMS_ITS | Encounter Summary ---
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 Not on file documented as of this encounter Plan of Treatment Upcoming Encounters Date Type Department Care Team (Late st Contact Info) Description 04/17/2025 9:15 AM EST Telemedicine [facility] [address] [place] [address] Kadi Carvajal MD [address] [place] [address] 06/05/2025 2:00 PM EDT Clinical Support [address] [address] Leslie Stapleton, RN documented as of this encounter Visit Diagnoses Diagnosis Anxiety Anxiety state, unspecified documented in this encounter Additional Health Concerns Assessment Noted Time PHQ-9 Depression Total Score: 23 024 9:07 AM EDT documented as of this encounter Care Teams Manager Simulation Relationship Specialty Start Date End Date Kadi Carvajal MD [address] [place] [phone] PCP - General Family Medicine 06/03/23 documented as of this encounter
--- OUTSIDE RECORDS SUMMARY | 2025-03-18 17:59 | XMS_ITS | Clinical Summary ---
Author Organization [facility] Address [address] [employer] [address] [address] Phone Care Team Providers Care Ice Cream Van Vendor Name Role Phone Wanda Fragoso Salina CORTES Primary Care Provider Allergies Active Allergy Reactions Criticality Noted Date Comments Sulfa (Sulfonamide Antibiotics) 06/19 Medications dextroamphetamin e-amphetamine (ADDERALL) 30 mg Tab tablet Take 30 mg by mouth daily. Active albuterol 90 mcg/actuation inhaler Inhale 2 puffs into the lungs every 6 (six) hours as needed for wheezing. Active dextroamphetamin e-amphetamine (ADDERALL) 20 mg Tab tablet Take 20 mg by mouth daily. Active FLUoxetine (PROZAC) 20 MG capsule Take 40 mg by mouth daily. Active Active Problems No known active problems Family History Medical History Relation Comments Alcohol abuse Father Hypertension Father Stroke Father Bone cancer Maternal Grandmother Hypertension Mother Stroke Paternal Grandmother Relation Status Comments Father Maternal Grandmother Mother Paternal Grandmother Social History Tobacco Use Types Packs/Day Years Used Date Smoking Tobacco: Light Smoker Smokeless Tobacco: Never Alcohol Use Standard Drinks/Week Comments Yes 0 (1 standard drink = 0.6 oz pur e alcohol) Education Answer Date Recorded Are you interested in more education? Not on dakotah e 07/16/2022 Are you concerned about learning? Not on file 07/16/2022 No 07/16/2022 No 07/16/2022 Digital Access Answer Date Recorded No 08/14/2022 No 08/14/2022 No 08/14/2022 Reliable internet access at home? Not on file 08/14/2022 Device with a working camera? Not on file Comments No Sex and Gender Information Value Date Recorded Sex Assigned at Not on file Legal Sex Female 10:23 AM EDT Gender Identity Not on file Sexual Orientation Not on file Last Filed Vital Signs Vital Sign Reading Time Taken Comments Blood Pressure 142/93 08/09/2019 6:20 PM EDT Pulse 85 08/09/2019 6:20 PM EDT Temperature 36.4 C (97.5 F) 08/09/2019 6:20 PM EDT Respiratory Rate - - Oxygen Saturation 99% 08/09/2019 6:20 PM EDT Inhaled Oxygen Concentration - - Weight 63.5 kg (140 lb) 11/03/2021 10:20 AM EDT Height 165.1 cm (5' 5 ) 11/03/2021 10:20 AM EDT Body Mass Index 23.3 11/03/2021 10:20 AM EDT Plan of Treatment Health Maintenance Due Date Last Done Comments Adult Td,Tdap Booster 1972 LIPID PANEL 1972 DEPRESSION SCREENING 1984 SMOKING Hx and SMOKELESS TOB ACCO SCREENING 1985 HEPATITIS C SCREENING 1990 HIV ONE-TIME SCREENING (18-6 5 YEARS) 1990 PNEUMOCOCCAL VACCINES (50+ y ears) (1 of 2 - PCV) 10/06/1991 PAP SMEAR 1993 MAMMOGRAM 2012 COLOGUARD 2017 COLONOSCOPY 2017 COLORECTAL CANCER SCREENING 2017 FIT TEST 2017 FOBT 2017 SIGMOIDOSCOPY 2017 VIRTUAL COLONOSCOPY 2017 ZOSTER VACCINES (1 of 2) 2022 INFLUENZA VACCINE (#1) 2024 COVID-19 VACCINE (2 - 2024-2 6 season) 2024 03/12/2021 RSV VACCINE (1 - 1-dose 75+ series) 10/06/2047 HEPATITIS A VACCINES Aged Out No long er eligible based on patient's age to complete this topic HIB VACCINES Aged Out No longer eligi ble based on patient's age to complete this topic MENINGOCOCCAL VACCINES (ACWY) Aged Out No longer eligible based on patient's age to complete this topic MENINGOCOCCAL VACCINES (B) Aged Out N o longer eligible based on patient's age to complete this topic Medical Devices Not on file Insurance Care Teams Ice Cream Van Vendor Relationship Specialty Start Date End Date [place], [place] SOPHIA Downing PCP - General Family Medicine 11/06/21 Additional Source Comments The information contained in this document represents components of the legal health record. It is not the complete legal health record.[facility]
--- OUTSIDE RECORDS SUMMARY | 2025-03-18 17:59 | XMS_ITS | Encounter Summary ---
Author Organization [facility] Address [address] [address] Phone Care Team Providers Care Administration Vice President Name Role Phone Driss Mar STRESS ANALYST Primary Care Provide r Driss Mar STRESS ANALYST Primary Care Provide r Wanda Fragoso STRESS ANALYST Primary Care Provider Encounter Details Date Type Department Care Team (Late st Contact Info) Description 06/06/2019 Ancillary Orders Virtual Department 30 [place] [address] Bonny Marrufo NP [address] [place] [address] Breast screening Social History Tobacco Use Types Packs/Day Years Used Date Smoking Tobacco: Never Assessed Comments Unknown Sex and Gender Information Value Date Recorded Sex Assigned at Not on file Legal Sex Female 10:23 AM EDT Gender Identity Not on file Sexual Orientation Not on file documented as of this encounter Plan of Treatment Not on file documented as of this encounter Visit Diagnoses Diagnosis Breast screening Breast screening, unspecified documented in this encounter Care Teams Administration Vice President Relationship Specialty Start Date End Date Driss Mar NP PCP - General 03/01/19 07/07/19 Driss Mar NP PCP - General 07/08/19 11/05/21 Wanda Fragoso NP PCP - General Family Medicine 11/06/21 documented as of this encounter Additional Source Comments The information contained in this document represents components of the legal health record. It is not the complete legal health record.[facility]
--- OUTSIDE RECORDS SUMMARY | 2025-03-18 17:59 | XMS_ITS | Encounter Summary ---
Author Organization [employer] Address [address] 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 on file Not [...] Info) Description 04/17/2025 9:15 AM EST Telemedicine [facility] [address] [place] [address] Kadi Carvajal MD [address] [place] [address] 06/05/2025 2:00 PM EDT Clinical Support [facility] [address] [place] [address] Leslie Stapleton RN documented as of this encounter Visit Diagnoses Not on filedocumented in this encounter Additional Health Concerns Assessment Noted Time PHQ-9 Depression Total Score: 23 024 9:07 AM EDT documented as of this encounter Care Teams Drawer Liner Relationship Specialty Start Date End Date Kadi Carvajal MD [address] [place] [address] PCP - General Family Medicine 06/03/23 documented as of this encounter
--- OUTSIDE RECORDS SUMMARY | 2025-03-18 17:59 | XMS_ITS | Encounter Summary ---
Author Organization [facility] Address [address] [address] Phone Care Team Providers Care Learning Center Coordinator Name Role Phone Driss Mar ASSET AVAILABILITY LEADER Primary Care Provide r Wanda Fragoso ASSET AVAILABILITY LEADER Primary Care Provider Encounter Details Date Type Department Care Team (Latest Contact Info) Description 02/15/2020 Transcribe Orders Virtual Department [address] [place] [address] Dinah Tolentino PA [address] [place] [address]. [place] [address] [email or web address] Screening for ovarian cancer (Primary Dx) Social History Tobacco Use Types Packs/Day Years Used Date Smoking Tobacco: Never Smokeless Tobacco: Never Comments Unknown Sex and Gender Information Value Date Recorded Sex Assigned at Not on file Legal Sex Female 10:23 AM EDT Gender Identity Not on file Sexual Orientation Not on file documented as of this encounter Plan of Treatment Not on file documented as of this encounter Visit Diagnoses Diagnosis Screening for ovarian cancer- Primary Special screening for malignant neoplasms, ovary documented in this encounter Care Teams Learning Center Coordinator Relationship Specialty Start Date End Date Driss Mar NP PCP - General 07/08/19 11/05/21 Wanda Fragoso NP PCP - General Family Medicine 11/06/21 documented as of this encounter Additional Source Comments The information contained in this document represents components of the legal health record. It is not the complete legal health record.[facility]
--- OUTSIDE RECORDS SUMMARY | 2025-03-18 17:59 | XMS_ITS | Encounter Summary ---
Author Organization [facility] Address [address] [employer] [address] [address] Phone Care Team Providers Care Video Technician Name Role Phone Driss Mar DIRECTOR [employer] Primary Care Provide r Wanda Fragoso [employer]OR [employer] Primary Care Provider Encounter Details Date Type Department Care Team (Late st Contact Info) Description 10/28/2021 Procedure Pass [facility], [address] [address] Social History Tobacco Use Types Packs/Day Years [...] on filedocumented in this encounter Care Teams Video Technician Relationship Specialty Start Date End Date Driss Mar NP PCP - General 07/08/19 11/05/21 Wanda Fragoso NP PCP - General Family Medicine 11/06/21 documented as of this encounter Additional Source Comments The information contained in this document represents components of the legal health record. It is not the complete legal health record.[facility]
--- OUTSIDE RECORDS SUMMARY | 2025-03-18 17:59 | XMS_ITS | Encounter Summary ---
Author Organization [employer] Address 75 [facility] 7t [place] [address] Care Team Providers Care Blending Tank Tender Helper Name Role Phone Kadi Carvajal MD Primary Care Provider [phone] Reason for Visit * Reason Onset Date Comments Med Refill 09/14/2023 Encounter Details Date Type Department Care Team ([facility] st Contact Info) Description 09/14/2023 Refill [facility] [address] [place], [place] [phone] Kadi Carvajal MD [address] [place], [place] [phone] Attention deficit disorder (ADD) without hyperactivity Social [...] 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 Not on file Not on file documented as of this encounter Plan of Treatment Upcoming Encounters Date Type Department Care Team (Late st Contact Info) Description 04/17/2025 9:15 AM EST Telemedicine [facility] [address] [place] [address] Kadi Carvajal MD [address] [place] [address] 06/05/2025 2:00 PM EDT Clinical Support [address] [address] Leslie Stapleton RN documented as of this encounter Visit Diagnoses Diagnosis Attention deficit disorder (ADD) without hyperactivity documented in this encounter Additional Health Concerns Assessment Noted Time PHQ-9 Depression Total Score: 23 024 9:07 AM EDT documented as of this encounter Care Teams Blending Tank Tender Helper Relationship Specialty Start Date End Date Kadi Carvajal MD [address] [place] [address] PCP - General Family Medicine 06/03/23 documented as of this encounter
--- OUTSIDE RECORDS SUMMARY | 2025-03-18 17:59 | XMS_ITS | Encounter Summary ---
Author Organization [employer] Address 75 [facility] 7t [place] [address] Care Team Providers Care Sawmill Tally Clerk Name Role Phone Kadi Carvajal MD Primary Care Provider [phone] Reason for Visit * Reason Onset Date Comments Med Refill 11/07/2023 Encounter Details Date Type Department Care Team ([facility] st Contact Info) Description 11/07/2023 Refill [facility] [address] [place], [place] [phone] Kadi Carvajal MD [address] [place], [place] [phone] Anxiety Social History Tobacco Use Types Packs/Day [...] 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 Not on file documented as of this encounter Plan of Treatment Upcoming Encounters Date Type Department Care Team (Late st Contact Info) Description 04/17/2025 9:15 AM EST Telemedicine [facility] [address] [place] [address] Kadi Carvajal MD [address] [place] [address] 06/05/2025 2:00 PM EDT Clinical Support [address] [address] Leslie Stapleton, RN documented as of this encounter Visit Diagnoses Diagnosis Anxiety Anxiety state, unspecified documented in this encounter Additional Health Concerns Assessment Noted Time PHQ-9 Depression Total Score: 23 024 9:07 AM EDT documented as of this encounter Care Teams Sawmill Tally Clerk Relationship Specialty Start Date End Date Kaid Carvajal MD [address] [place] [address] PCP - General Family Medicine 06/03/23 documented as of this encounter
--- OUTSIDE RECORDS SUMMARY | 2025-03-18 17:59 | XMS_ITS | Encounter Summary ---
Author Organization [employer] Address 75 [facility] 7t [place] [address] Care Team Providers Care Poured Wall Foreman Name Role Phone Kadi Carvajal MD Primary Care Provider [phone] Reason for Visit * Reason Onset Date Comments Med Refill 02/20/2025 Encounter Details Date Type Department Care Team ([facility] st Contact Info) Description 02/20/2025 Refill [facility] [address] [place], [place] [phone] Kadi Carvajal MD 230 [place], [place] [phone] Anxiety Social History Tobacco Use Types Packs/Day [...] the past 12 months, has t he [employer], gas, oil or water [employer] threatened to shut off services in your [...] 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 Not on file Not on file documented as of this encounter Plan of Treatment Upcoming Encounters Date Type Department Care Team ([facility] st Contact Info) Description 04/17/2025 9:15 AM EST Telemedicine [facility] [address] [place] [address] Kadi Carvajal MD [address] [place] [address] 06/05/2025 2:00 PM EDT Clinical Support [facility] [address] [place] [address] Leslie Stapleton RN documented as of this encounter Visit Diagnoses Diagnosis Anxiety Anxiety state, unspecified documented in this encounter Additional Health Concerns Assessment Noted Time PHQ-9 Depression Total Score: 4 07/28/19 25 2:15 PM EDT documented as of this encounter Care Teams Poured Wall Foreman Relationship Specialty Start Date End Date Kadi Carvajal MD [address] [place] [address] PCP - General Family Medicine 06/03/23 documented as of this encounter
--- OUTSIDE RECORDS SUMMARY | 2025-03-18 17:59 | XMS_ITS | Encounter Summary ---
Author Organization [employer] Address 75 [facility] 7t [place] [address] Care Team Providers Care Servomechanism Designer Name Role Phone Kadi Carvajal MD Primary Care Provider [phone] Reason for Visit * Reason Onset Date Comments Med Refill 09/09/2024 Encounter Details Date Type Department Care Team ([facility] st Contact Info) Description 09/09/2024 Refill [facility] MED[facility] [address] [place], [place] [phone] Kadi Carvajal MD [address] [place], [place] [phone] Anxiety Social History Tobacco Use Types Packs/Day [...] the past 12 months, has t he [employer], gas, oil or water [employer] threatened to shut off services in your [...] 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 Not on file documented as of this encounter Plan of Treatment Upcoming Encounters Date Type Department Care Team ([facility] st Contact Info) Description 04/17/2025 9:15 AM EST Telemedicine [facility] MED[facility]INE [address] [place] [address] Kadi Carvajal MD [address] [place] [address] 06/05/2025 2:00 PM EDT Clinical Support [facility] [address] [place] [address] Leslie Stapleton RN documented as of this encounter Visit Diagnoses Diagnosis Anxiety Anxiety state, unspecified documented in this encounter Additional Health Concerns Assessment Noted Time PHQ-9 Depression Total Score: 4 07/28/19 25 2:15 PM EDT documented as of this encounter Care Teams Servomechanism Designer Relationship Specialty Start Date End Date Kadi Carvajal MD [address] [place] [address] PCP - General Family Medicine 06/03/23 documented as of this encounter
--- OUTSIDE RECORDS SUMMARY | 2025-03-18 17:59 | XMS_ITS | Encounter Summary ---
Author Organization [employer] Address 75 [facility] 7t [place] [address] Care Team Providers Care Infirmary Attendant Name Role Phone Kadi Carvajal MD Primary Care Provider [phone] Reason for Visit * Reason Onset Date Comments Med Refill 11/11/2023 Encounter Details Date Type Department Care Team ([facility] st Contact Info) Description 11/11/[address] 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 TC to patient, explained to patient above. Patient clarifying that she's trying to organize and straighten things out for her self. Encouraged her to call [facility] regarding her prescriptions as they havebeen at the pharmacy. Pt stated she is not getting alerted from [facility] when she has prescription readyand when she calls them they say they dont have it. Advised again, to call [facility], review her cell #, assure they have her setup for electronic alerts and be sure she's calling the correct pharmacy as she has [facility]. documented in this encounter Plan of Treatment Upcoming Encounters Date Type Department Care Team (Late st Contact Info) Description 04/17/2025 9:[address] [facility] [address] [place] [address] Kaid Carvajal MD [address] [place] [phone] 06/05/2025 2:00 PM EDT Clinical Support [facility] [address] [place] [address] Leslie Stapleton, RN documented as of this encounter Visit Diagnoses Diagnosis Anxiety Anxiety state, unspecified documented in this encounter Additional Health Concerns Assessment Noted Time PHQ-9 Depression Total Score: 23 024 9:07 AM EDT documented as of this encounter Care Teams Infirmary Attendant Relationship Specialty Start Date End Date Kadi Carvajal MD [address] [place] [address] PCP - General Family Medicine 06/03/23 documented as of this encounter
--- OUTSIDE RECORDS SUMMARY | 2025-03-18 17:59 | XMS_ITS | Encounter Summary ---
Author Organization [employer] Address [address] [facility] [address] 7[address] [place] [address] Care Team Providers Care Landscape Contractor Name Role Phone Kadi Carvajal MD Primary Care Provider [phone] Reason for Visit * Reason Onset Date Comments Med Refill 03/23/2024 Encounter Details Date Type Department Care Team ([facility] st Contact Info) Description 03/23/2024 Refill [facility] [address] [place] [address] Selam Pickard MD [address] [place] [address] Mild persistent asthma without complication Social History [...] 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 file Not on file documented as of this encounter Plan of Treatment Upcoming Encounters Date Type Department Care Team (Late st Contact Info) Description 04/17/2025 9:15 AM EST Telemedicine [facility] [address] [place] [address] Kadi Carvajal MD [address] [place] [address] 06/05/2025 2:00 PM EDT Clinical Support [address] [address] Leslie Stapleton, RN documented as of this encounter Visit Diagnoses Diagnosis Mild persistent asthma without complication documented in this encounter Additional Health Concerns Assessment Noted Time PHQ-9 Depression Total Score: 23 024 9:07 AM EDT documented as of this encounter Care Teams Landscape Contractor Relationship Specialty Start Date End Date Kadi Carvajal MD [address] [place] [address] PCP - General Family Medicine 06/03/23 documented as of this encounter
--- OUTSIDE RECORDS SUMMARY | 2025-03-18 17:59 | XMS_ITS | Encounter Summary ---
Author Organization [employer] Address 75 [facility] 7t [place] [address] Care Team Providers Care Business Improvement Manager Name Role Phone Kadi Carvajal MD Primary Care Provider [phone] Reason for Visit * Reason Onset Date Comments Med Refill 01/09/2025 Encounter Details Date Type Department Care Team ([facility] st Contact Info) Description 01/09/2025 Refill [facility] [address] [place], [place] [phone] Kadi Carvajal MD [address] [place], [place] [phone] Anxiety; Attention deficit disorder (ADD) without hyperactivity Social [...] 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 file Not on file documented as of this encounter Plan of Treatment Upcoming Encounters Date Type Department Care Team (Late st Contact Info) Description 04/17/2025 9:15 AM EST Telemedicine [facility] MED[facility] [address] [place] [address] Kadi Carvajal MD [address] [place] [address] 06/05/2025 2:00 PM EDT Clinical Support [facility] [address] [place] [address] Leslie Stapleton RN documented as of this encounter Visit Diagnoses Diagnosis Anxiety Anxiety state, unspecified Attention deficit disorder (ADD) without hyperactivity documented in this encounter Additional Health Concerns Assessment Noted Time PHQ-9 Depression Total Score: 4 07/28/19 25 2:15 PM EDT documented as of this encounter Care Teams Business Improvement Manager Relationship Specialty Start Date End Date Kadi Carvajal MD [address] [place] [address] PCP - General Family Medicine 06/03/23 documented as of this encounter
--- OUTSIDE RECORDS SUMMARY | 2025-03-18 17:59 | XMS_ITS | Encounter Summary ---
Author Organization [employer] Address 75 [facility] 7t [place] [address] Care Team Providers Care Industrial Sales Manager Name Role Phone Kadi Carvajal MD Primary Care Provider [phone] Reason for Visit * Reason Onset Date Comments Med Refill 11/15/2024 Encounter Details Date Type Department Care Team ([facility] st Contact Info) Description 11/15/2024 Refill [facility] 230 [place], [place] [phone] Kadi Carvajal MD 230 [place], [place] [phone] Attention deficit disorder (ADD) without hyperactivity Social [...] t he electric, gas, oil or water [employer] threatened to shut off services in your [...] 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 Not on file documented as of this encounter Plan of Treatment Upcoming Encounters Date Type Department Care Team (Late st Contact Info) Description 04/17/2025 9:15 AM EST Telemedicine [facility] [address] [place] [address] Kadi Carvajal MD [address] [place] [address] 06/05/2025 2:00 PM EDT Clinical Support [facility] [address] [place] [address] Leslie Stapleton RN documented as of this encounter Visit Diagnoses Diagnosis Attention deficit disorder (ADD) without hyperactivity documented in this encounter Additional Health Concerns Assessment Noted Time PHQ-9 Depression Total Score: 4 07/28/19 25 2:15 PM EDT documented as of this encounter Care Teams Industrial Sales Manager Relationship Specialty Start Date End Date Kadi Carvajal MD [address] [place] [address] PCP - General Family Medicine 06/03/23 documented as of this encounter
--- OUTSIDE RECORDS SUMMARY | 2025-03-18 17:59 | XMS_ITS | Encounter Summary ---
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 Not on file Not on file documented as of this encounter Plan of Treatment Upcoming Encounters Date Type Department Care Team (Late st Contact Info) Description 04/17/2025 9:15 AM EST Telemedicine [facility] [address] [place] [address] Kadi Carvajal MD [address] [place] [address] 06/05/2025 2:00 PM EDT Clinical Support [address] [address] Leslie Stapleton, RN documented as of this encounter Visit Diagnoses Diagnosis Anxiety Anxiety state, unspecified documented in this encounter Additional Health Concerns Assessment Noted Time PHQ-9 Depression Total Score: 23 024 9:07 AM EDT documented as of this encounter Care Teams Congressional District Aide Relationship Specialty Start Date End Date Kadi Carvajal MD [address] [place] [address] PCP - General Family Medicine 06/03/23 documented as of this encounter
--- OUTSIDE RECORDS SUMMARY | 2025-03-18 17:59 | XMS_ITS | Encounter Summary ---
Author Organization [employer] Address 75 [facility] 7t [place] [address] Care Team Providers Care Will Call Order Clerk Name Role Phone Kadi Carvajal MD Primary Care Provider [phone] Reason for Visit * Reason Onset Date Comments Med Refill 12/19/2023 Encounter Details Date Type Department Care Team ([facility] st Contact Info) Description 12/19/2023 Refill [facility] 230 [place], [place] [phone] Kadi Carvajal MD 230 [place], [place] [phone] Attention deficit disorder (ADD) without hyperactivity Social [...] 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 Not on file documented as of this encounter Plan of Treatment Upcoming Encounters Date Type Department Care Team (Late st Contact Info) Description 04/17/2025 9:15 AM EST Telemedicine [facility] [address] [place] [address] Kadi Carvajal MD [address] [place] [address] 06/05/2025 2:00 PM EDT Clinical Support [address] [address] Leslie Stapleton RN documented as of this encounter Visit Diagnoses Diagnosis Attention deficit disorder (ADD) without hyperactivity documented in this encounter Additional Health Concerns Assessment Noted Time PHQ-9 Depression Total Score: 23 024 9:07 AM EDT documented as of this encounter Care Teams Will Call Order Clerk Relationship Specialty Start Date End Date Kadi Carvajal MD [address] [place] [address] PCP - General Family Medicine 06/03/23 documented as of this encounter
--- OUTSIDE RECORDS SUMMARY | 2025-03-18 17:59 | XMS_ITS | Encounter Summary ---
Author Organization [employer] Address 75 [facility] 7t [place] [address] Care Team Providers Care Environmental Health Technologist Name Role Phone Kadi Carvajal MD Primary Care Provider Reason for Visit * Reason Onset Date Comments Med Refill 10/17/2023 Encounter Details Date Type Department Care Team ([facility] st Contact Info) Description 10/17/2023 Refill [facility] 230 [place], [place] [phone] Kadi Carvajal MD 230 [place], [place] [phone] Menopausal symptoms Social History Tobacco Use Types [...] 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 Not on file documented as of this encounter Plan of Treatment Upcoming Encounters Date Type Department Care Team (Late st Contact Info) Description 04/17/2025 9:15 AM EST Telemedicine [address] [address] Kadi Carvajal MD [address] [place] [address] 06/05/2025 2:00 PM EDT Clinical Support [address] [address] Leslie Stapleton, RN documented as of this encounter Visit Diagnoses Diagnosis Menopausal symptoms Symptomatic menopausal or female climacteric states documented in this encounter Additional Health Concerns Assessment Noted Time PHQ-9 Depression Total Score: 23 024 9:07 AM EDT documented as of this encounter Care Teams Environmental Health Technologist Relationship Specialty Start Date End Date Kadi Carvajal MD [address] [place] [address] PCP - General Family Medicine 06/03/23 documented as of this encounter
--- OUTSIDE RECORDS SUMMARY | 2025-03-18 17:59 | XMS_ITS | Encounter Summary ---
Author Organization [facility] Address [address] [facility] [address] [place] [address] Phone Care Team Providers Care Pump Erector Helper Name Role Phone Dayan Mena MD Primary Care Provider Driss Mar OBIEE LEAD DEVELOPER Primary Care Provide r Driss Mar OBIEE LEAD DEVELOPER Primary Care Provide r [facility] OBIEE LEAD DEVELOPER Primary Care Provider Encounter Details Date Type Department Care Team (Latest Contact Info) Description 01/24/2019 Transcribe Orders Virtual Department 30 [place] [address] Dayan Mena MD 15 [facility] 201 [place] [address] [email or web address] Metrorrhagia (Primary Dx) Social History Tobacco Use Types Packs/Day Years Used Date Smoking Tobacco: Never Assessed Comments Unknown Sex and Gender Information Value Date Recorded Sex Assigned at Not on file Legal Sex Female 10:23 AM EDT Gender Identity Not on file Sexual Orientation Not on file documented as of this encounter Plan of Treatment Not on file documented as of this encounter Results * US PELVIS TRANSABDOMINAL PLUS TRANSVAGINAL (01/31/2019 3:15 PM EST) Anatomical Region Laterality Modality Pelvis, Uterus/Adnexa Ultrasound 01/31/2019 3:50 PM EST Impressions 01/31/2019 3:54 PM EST Corpus luteum on the right and large simple cyst on the left. No endometrial or uterine abnormality to account for the abnormal bleeding. POS: [id number] Narrative 01/31/2019 3:54 PM EST HISTORY: Metrorrhagia COMPARISON: None Ultrasonic examination of the pelvis is performed transabdominally and endovaginally. Multiple static images obtained. FINDINGS: Uterus: Uterus is measured at 7.7 cm in length. Fundus is measured at 4.4 x 3.4 cm. Endometrium is unremarkable, measured at 8 mm in thickness. No fibroids are seen. Uterus is anteverted and at the midline. Ovaries: Right ovary is measured at 3.1 x 2.5 x 2.1 cm. Follicular cysts seen on the right, largest measuring up to 1.5 cm. What appears to be corpus luteum without a slight large amount of peripheral flow noted measuring up to 1.4 cm maximally. Left ovary measures 3.5 x 2.9 x 2.7 cm and has a large simple cyst measuring up to 2.7 cm within. Low resistance vascular waveforms are documented in both ovaries. Other: No free fluid Procedure Note Jean-Claude Lacy MD - 01/31/2019 HISTORY: Metrorrhagia COMPARISON: None Ultrasonic examination of the pelvis is performed transabdominally andendovaginally. Multiple static images obtained. FINDINGS: Uterus: Uterus is measured at 7.7 cm in length. Fundus is measured at 4.4x 3.4 cm. Endometrium is unremarkable, measured at 8 mm in thickness. Nofibroids are seen. Uterus is anteverted and at the midline. Ovaries: Right ovary is measured at 3.1 x 2.5 x 2.1 cm. Follicular cystsseen on the right, largest measuring up to 1.5 cm. What appears to becorpus luteum without a slight large amount of peripheral flow notedmeasuring up to 1.4 cm maximally. Left ovary measures 3.5 x 2.9 x 2.7 cmand has a large simple cyst measuring up to 2.7 cm within. Low resistancevascular waveforms are documented in both ovaries. Other: No free fluid IMPRESSION: Corpus luteum on the right and large simple cyst on the left. Noendometrial or uterine abnormality to account for the abnormal bleeding. POS: [id number] Dayan Mena MD IM US PELVIS Final Result documented in this encounter Visit Diagnoses Diagnosis Metrorrhagia- Primary Metrorrhagia documented in this encounter Care Teams Pump Erector Helper Relationship Specialty Start Date End Date Dayan Mena MD [address] [address] [email or web address] PCP - General Family Medicine 12/01/17 02/28/19 Driss Mar NP [address] [address] PCP - General 03/01/19 07/07/19 Driss Mar NP [address] [place] [address] PCP - General 07/08/19 11/05/21 Wanda Fragoso NP [address] [place] [address] PCP - General Family Medicine 11/06/21 documented as of this encounter Additional Source Comments The information contained in this document represents components of the legal health record. It is not the complete legal health record.[facility]
--- OUTSIDE RECORDS SUMMARY | 2025-03-18 17:59 | XMS_ITS | Encounter Summary ---
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 Not on file documented as of this encounter Plan of Treatment Upcoming Encounters Date Type Department Care Team (Late st Contact Info) Description 04/17/2025 9:15 AM EST Telemedicine [facility] [address] [place] [address] Kadi Carvajal MD [address] [place] [address] 06/05/2025 2:00 PM EDT Clinical Support [address] [address] Leslie Stapleton, RN documented as of this encounter Visit Diagnoses Diagnosis Mild persistent asthma without complication documented in this encounter Additional Health Concerns Assessment Noted Time PHQ-9 Depression Total Score: 23 024 9:07 AM EDT documented as of this encounter Care Teams Manager Helpdesk Relationship Specialty Start Date End Date Kadi Carvajal MD [address] [place] [address] PCP - General Family Medicine 06/03/23 documented as of this encounter
--- OUTSIDE RECORDS SUMMARY | 2025-03-18 17:59 | XMS_ITS | Encounter Summary ---
Author Organization [employer] Address [address] [facility] [address] 7[address] [place] [address] Care Team Providers Care Pearl Diver Name Role Phone Kadi Carvajal MD Primary Care Provider [phone] Encounter Details Date Type Department Care Team ([facility] st Contact Info) Description 01/25/2025 Orders Only [facility] 230 [place], [place] [phone] Kadi Carvajal MD 230 [place], [place] [phone] Social History Tobacco Use Types Packs/Day Years [...] the past 12 months, has t he [employer], gas, oil or water company threatened to [...] 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 Not on file documented as of this encounter Plan of Treatment Upcoming Encounters Date Type Department Care Team (Late st Contact Info) Description 04/17/2025 9:15 AM EST Telemedicine [facility] [address] [place] [address] Kadi Carvajal MD 230 [place] [address] 06/05/2025 2:00 PM EDT Clinical Support [facility] 230 [place] [address] Leslie Stapleton RN documented as of this encounter Visit Diagnoses Not on filedocumented in this encounter Additional Health Concerns Assessment Noted Time PHQ-9 Depression Total Score: 4 07/28/19 25 2:15 PM EDT documented as of this encounter Care Teams Pearl Diver Relationship Specialty Start Date End Date Kadi Carvajal MD 230 [place] [address] PCP - General Family Medicine 06/03/23 documented as of this encounter
--- OUTSIDE RECORDS SUMMARY | 2025-03-18 17:59 | XMS_ITS | Encounter Summary ---
Author Organization [employer] Address [address] [facility] [address] 7t [place] [address] Care Team Providers Care Social Work Associate Name Role Phone Kadi Carvajal MD Primary Care Provider [phone] Reason for Visit * Reason Onset Date Comments Med Refill 08/20/2023 Encounter Details Date Type Department Care Team ([facility] st Contact Info) Description 08/20/2023 Refill [facility] 230 [place] [address] Selam Pickard MD 505 [place] [address] Mild persistent asthma without complication Social History [...] 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 Not on file documented as of this encounter Plan of Treatment Upcoming Encounters Date Type Department Care Team (Late st Contact Info) Description 04/17/2025 9:15 AM EST Telemedicine [facility] [address] [place] [address] Kadi Carvajal MD [address] [place] [address] 06/05/2025 2:00 PM EDT Clinical Support [address] [address] Leslie Stapleton, RN documented as of this encounter Visit Diagnoses Diagnosis Mild persistent asthma without complication documented in this encounter Additional Health Concerns Assessment Noted Time PHQ-9 Depression Total Score: 23 024 9:07 AM EDT documented as of this encounter Care Teams Social Work Associate Relationship Specialty Start Date End Date Kadi Carvajal MD [address] [place] [address] PCP - General Family Medicine 06/03/23 documented as of this encounter
--- OUTSIDE RECORDS SUMMARY | 2025-03-18 17:59 | XMS_ITS | Encounter Summary ---
Author Organization [employer] Address [address] [facility] 7t [place] [address] Care Team Providers Care Control Room Tender Name Role Phone Kadi Carvajal MD Primary Care Provider [phone] Reason for Visit * Reason Onset Date Comments Med Refill 11/15/2024 Encounter Details Date Type Department Care Team ([facility] st Contact Info) Description 11/15/2024 Refill [facility] 230 [place], [place] [phone] Kadi Carvajal MD 230 [place], [place] [phone] Social History Tobacco Use Types Packs/Day Years [...] t he electric, gas, oil or water [employer] threatened to shut off services in your [...] 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 file Not on file documented as of this encounter Plan of Treatment Upcoming Encounters Date Type Department Care Team ([facility] st Contact Info) Description 04/17/2025 9:15 AM EST Telemedicine [facility] 230 [place] [address] Kadi Carvajal MD 230 [place] [address] 06/05/2025 2:00 PM EDT Clinical Support [facility] 230 [place] [address] Leslie Stapleton RN documented as of this encounter Visit Diagnoses Not on filedocumented in this encounter Additional Health Concerns Assessment Noted Time PHQ-9 Depression Total Score: 4 07/28/19 25 2:15 PM EDT documented as of this encounter Care Teams Control Room Tender Relationship Specialty Start Date End Date Kadi Carvajal MD 230 [place] [address] PCP - General Family Medicine 06/03/23 documented as of this encounter
--- OUTSIDE RECORDS SUMMARY | 2025-03-18 17:59 | XMS_ITS | Encounter Summary ---
Author Organization [facility] Address [address] [facility] [address] [place] [phone] Phone Care Team Providers Care Adult Crossing Guard Name Role Phone Driss Mar MARKETING PRODUCER Primary Care Provide r Wanda Fragoso MARKETING PRODUCER Primary Care Provider Encounter Details Date Type Department Care Team (Late st Contact Info) Description 04/23/2021 Transcribe Orders Virtual Department 30 [place] [address] Wanda Fragoso, MARKETING PRODUCER [address] [place] [address] Closed nondisplaced fracture of distal phalanx of right ring finger, sequela (Primary Dx) Social History Tobacco Use Types [...] documented as of this encounter Results * XR FINGER 2 OR MORE VIEWS (RIGHT) (10/26/2021 2:03 PM EDT) Anatomical Region Laterality Modality Hand Right Computed Radiogr aphy 10/27/2021 6:59 AM EDT Narrative 10/27/2021 6:59 AM EDT XR FINGER 2 OR MORE VIEWS (RIGHT) COMPARISON: None FINDINGS: Oblique, comminuted fracture of the ring finger distal tuft. No other fractures or dislocations. No radiopaque foreign bodies are seen. Procedure Note Jose Smart MD, NATALIA - 10/27/2021 XR FINGER 2 OR MORE VIEWS (RIGHT) COMPARISON: None FINDINGS: Oblique, comminuted fracture of the ring finger distal tuft. No other fractures or dislocations. No radiopaque foreign bodies areseen. Wanda Fragoso MARKETING PRODUCER IMG XR UPPER EXTREMITY Final Result documented in this encounter Visit Diagnoses Diagnosis Closed nondisplaced fracture of distal phalanx of right ring finger, sequela- Primary Closed nondisplaced fracture of distal phalanx of right ring finger, sequela documented in this encounter Care Teams Adult Crossing Guard Relationship Specialty Start Date End Date Driss Mar NP PCP - General 07/08/19 11/05/21 Wanda Fragoso NP PCP - General Family Medicine 11/06/21 documented as of this encounter Additional Source Comments The information contained in this document represents components of the legal health record. It is not the complete legal health record.[facility]
--- OUTSIDE RECORDS SUMMARY | 2025-03-18 17:59 | XMS_ITS | Encounter Summary ---
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 Not [...] Info) Description 04/17/2025 9:15 AM EST Telemedicine [facility]INE [address] [place] [address] Kadi Carvajal MD [address] [place] [address] 06/05/2025 2:00 PM EDT Clinical Support [address] [address] Leslie Stapleton, JUAN documented as of this encounter Visit Diagnoses Not on filedocumented in this encounter Additional Health Concerns Assessment Noted Time PHQ-9 Depression Total Score: 23 024 9:07 AM EDT documented as of this encounter Care Teams Movie Machine Operator Relationship Specialty Start Date End Date Kadi Carvajal MD [address] [place] [address] PCP - General Family Medicine 06/03/23 documented as of this encounter
--- OUTSIDE RECORDS SUMMARY | 2025-03-18 17:59 | XMS_ITS | Encounter Summary ---
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 Not on file documented as of this encounter Plan of Treatment Upcoming Encounters Date Type Department Care Team (Late st Contact Info) Description 04/17/2025 9:15 AM EST Telemedicine [facility] [address] [place] [address] Kadi Carvajal MD [address] [place] [address] 06/05/2025 2:00 PM EDT Clinical Support [facility] [address] [place] [address] Leslie Stapleton RN documented as of this encounter Visit Diagnoses Not on filedocumented in this encounter Additional Health Concerns Assessment Noted Time PHQ-9 Depression Total Score: 4 07/28/19 25 2:15 PM EDT documented as of this encounter Care Teams Pilot Can Router Relationship Specialty Start Date End Date Kadi Carvajal MD [address] [place] [address] PCP - General Family Medicine 06/03/23 documented as of this encounter
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
--- OUTSIDE RECORDS SUMMARY | 2025-03-18 17:59 | XMS_ITS | Encounter Summary ---
Author Organization [facility] Address [address] [place] [address] Phone Care Team Providers Care Non Cdl Driver Name Role Phone Dayan Mena MD Primary Care Provider Driss Mar TUBE MACHINE OPERATOR Primary Care Provide r Driss Mar TUBE MACHINE OPERATOR [facility] TU[facility]ACH[facility] OPER[facility] Primary Care Provider Encounter Details Date Type Department Care Team (Late st Contact Info) Description 12/01/2017 Ancillary Orders Virtual Department [address] [place] [address] Dayan Mena MD [address] [place] [address] [email or web address] Breast screening Social History Tobacco Use Types [...] unspecified documented in this encounter Care Teams Non Cdl Driver Relationship Specialty Start Date End Date Dayan Mena MD [address] [address] [email or web address] PCP - General Family Medicine 12/01/17 02/28/19 Driss Mar NP [address] [address] PCP - General 03/01/19 07/07/19 Driss Mar NP [address] [place] [address] PCP - General 07/08/19 11/05/21 Wanda Fragoso NP [address] [place] [id number] PCP - General Family Medicine 11/06/21 documented as of this encounter Additional Source Comments The information contained in this document represents components of the legal health record. It is not the complete legal health record.[facility]
--- OUTSIDE RECORDS SUMMARY | 2025-03-18 17:59 | XMS_ITS | Encounter Summary ---
Author Organization [employer] Address [address] [place] [address] Care Team Providers Care Consulting Psychiatrist Name Role Phone Kadi Carvajal MD Primary Care Provider [phone] Reason for Visit * Reason Onset Date Comments Med Refill 01/11/2025 Encounter Details Date Type Department Care Team ([facility] st Contact Info) Description 01/11/2025 Refill [facility] [address] [place], [place] [phone] Kadi Carvajal MD [address] [place] [address] Social History Tobacco Use Types Packs/Day Years [...] t he electric, gas, oil or water [employer] threatened to shut off services in your [...] 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 Not on file documented as of this encounter Plan of Treatment Upcoming Encounters Date Type Department Care Team ([facility] st Contact Info) Description 04/17/2025 9:15 AM EST Telemedicine [facility] [address] [place] [address] Kadi Carvajal MD [address] [place] [address] 06/05/2025 2:00 PM EDT Clinical Support [facility] [address] [place] [address] Leslie Stapleton RN documented as of this encounter Visit Diagnoses Not on filedocumented in this encounter Additional Health Concerns Assessment Noted Time PHQ-9 Depression Total Score: 4 07/28/19 25 2:15 PM EDT documented as of this encounter Care Teams Consulting Psychiatrist Relationship Specialty Start Date End Date Kadi Carvajal MD [address] [place] [address] PCP - General Family Medicine 06/03/23 documented as of this encounter
--- OUTSIDE RECORDS SUMMARY | 2025-03-18 17:59 | XMS_ITS | Encounter Summary ---
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 Not on file documented as of this encounter Plan of Treatment Upcoming Encounters Date Type Department Care Team (Late st Contact Info) Description 04/17/2025 9:15 AM EST Telemedicine [facility] [address] [place] [address] Kadi Carvajal MD [address] [place] [address] 06/05/2025 2:00 PM EDT Clinical Support [facility] [address] [place] [address] Leslie Stapleton, RN documented as of this encounter Visit Diagnoses Not on filedocumented in this encounter Additional Health Concerns Assessment Noted Time PHQ-9 Depression Total Score: 23 024 9:07 AM EDT documented as of this encounter Care Teams Cafeteria Team Leader Relationship Specialty Start Date End Date Kadi Carvajal MD [address] [place] [id number] PCP - General Family Medicine 06/03/23 documented as of this encounter
--- OUTSIDE RECORDS SUMMARY | 2025-03-18 17:59 | XMS_ITS | Encounter Summary ---
Author Organization [employer] Address [address] [facility] 7[address] [place] [address] Care Team Providers Care Zoo Veterinarian Name Role Phone Kadi Carvajal MD Primary Care Provider [phone] Reason for Visit * Reason Onset Date Comments Med Refill 02/11/2025 Encounter Details Date Type Department Care Team ([facility] st Contact Info) Description 02/11/2025 Refill [facility] [address] [place], [place] [phone] Kadi Carvajal MD [address] [place], [place] [phone] Anxiety Social History Tobacco Use Types Packs/Day [...] the past 12 months, has t he [employer], gas, oil or water 1-800-DENT[employer] threatened to shut off services in your [...] 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 Not on file documented as of this encounter Plan of Treatment Upcoming Encounters Date Type Department Care Team ([facility] st Contact Info) Description 04/17/2025 9:15 AM EST Telemedicine [facility] MED[facility]INE [address] [place] [address] Kadi Carvajal MD [address] [place] [address] 06/05/2025 2:00 PM EDT Clinical Support [facility]INE [address] [place] [address] Leslie Stapleton RN documented as of this encounter Visit Diagnoses Diagnosis Anxiety Anxiety state, unspecified documented in this encounter Additional Health Concerns Assessment Noted Time PHQ-9 Depression Total Score: 4 07/28/19 25 2:15 PM EDT documented as of this encounter Care Teams Zoo Veterinarian Relationship Specialty Start Date End Date Kadi Carvajal MD [address] [place] [address] PCP - General Family Medicine 06/03/23 documented as of this encounter
--- OUTSIDE RECORDS SUMMARY | 2025-03-18 17:59 | XMS_ITS | Encounter Summary ---
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 Not on file Not on file documented as of this encounter Miscellaneous Notes * Telephone Encounter - Jovi Gray DMD - 11/09/2023 8:01 AM EDT I have already ordered the mouthwash 5 days ago documented in this encounter Plan of Treatment Upcoming Encounters Date Type Department Care Team (Late st Contact Info) Description 04/17/2025 9:15 AM EST Telemedicine [address] [address] Kadi Carvajal MD [address] [place] [address] 06/05/2025 2:00 PM EDT Clinical Support [address] [address] Leslie Stapleton, JUAN documented as of this encounter Visit Diagnoses Not on filedocumented in this encounter Additional Health Concerns Assessment Noted Time PHQ-9 Depression Total Score: 23 024 9:07 AM EDT documented as of this encounter Care Teams Professor Computer Science Relationship Specialty Start Date End Date Kadi Carvajal MD [address] [place] [phone] PCP - General Family Medicine 06/03/23 documented as of this encounter
== END 2025-03-18 16:23 ==
LOC: HO.HHCLNP 16:22
PROVIDERS: Visit Provider General Practice
DX: Z79.899 Other long term (current) drug therapy (principal)
CPT/HCPCS: 80346